=== PATIENT | female | born 1965 | race Caucasian/White ===

== ENCOUNTER 2019-11-27 09:04 | Emergency (ER) | payer OTHER, SELFPAY ==
[2019-11-27 09:09] VITALS: BP 133/82; PULSE 84; RESP 18; TEMP 35.6; O2SAT 96
--- NOTE | 2019-11-27 10:26 | ED.HA ---
HPI - Headache General Chief Complaint: Headache Stated Complaint: sanchez Time Seen by Provider: 11/27/19 10:19 History of Present Illness HPI Narrative: Patient presents with her for migraines since middle of the night. She woke up with it and took 2 10 mg Maxalt. That did not help her at all. She has been throwing up all morning. She is already gotten a liter of fluids Reglan and Benadryl here, and said the nausea is better. The headache pain was 10 out of 10 when she arrived, and is 9 out of 10 now. MD elicited complaint: migraine Pertinent past history: migraines Onset (ago): hour(s) Onset description: on awakening Location: frontal Severity: severe Pain scale (0-10): 9 Exacerbating factors: light Relieving factors: nothing Context: occurred at rest Related Data Allergies Allergy/AdvReac Type Severity Reaction Status Date / Time codeine Allergy Nausea and Verified 11/27/19 09:25 Vomiting morphine Allergy Nausea and Verified 11/27/19 09:25 Vomiting Review of Systems Review of Systems: Narrative: CONSTITUTIONAL: Denies fever, chills, or sweats. EYES: Denies visual changes, redness, or discharge. ENT: Denies rhinorrhea, congestion, sore throat, or otalgia. CARDIOVASCULAR: Denies chest pain, palpitations, or edema. RESPIRATORY: Denies cough or dyspnea. GASTROINTESTINAL: Denies abdominal pain, nausea, vomiting, or diarrhea. GENITOURINARY: Denies dysuria or hematuria. SKIN: Denies rash or itching. MUSCULOSKELETAL: Denies back pain, joint pain, or myalgia. NEUROLOGIC: Denies, numbness, or weakness. PSYCHIATRIC: Denies anxiety or depression. PMFSH Past Medical History Medical History (Updated 11/27/19 @ 10:28 by Nirmala Garibay MD) Migraine Social History Social History Gender identity (if verbalized by the patient): Female Exam Narrative: Exam Narrative: GENERAL: Well-appearing, well-nourished, in moderate distress. Holding her head between her hands, blocking the light from her eyes. HEAD: Normocephalic, atraumatic. EYES: PERRLA and EOMI. ENT: Nares clear, no rhinorrhea or epistaxis. Mucous membranes moist. NECK: Supple. CHEST: Clear to auscultation. No respiratory distress. HEART: Regular rate and rhythm. No murmur heard. Normal peripheral pulses. ABDOMEN: Soft, nontender, nondistended, normal active bowel sounds. EXTREMITIES: Normal range of motion. No edema. SKIN: Warm, dry, no rash. NEURO: No focal deficits. Alert and oriented x3. PSYCH: Flat affect, poor eye contact. Course Reevaluation(s) Reevaluation #1: Went back into see the patient and she is feeling much better. After Reglan Benadryl and IV fluids, then Toradol and Solu-Medrol. Her pain is 3 out of 10. She has not seen a neurologist. I offered to let her follow-up with ours. She agrees. She works from home for [employer], but I advised her to have quiet activity today. Date: 11/27/19 Time: 11:59 Vital Signs Vital signs: Vital Signs Temperature 96.1 F L 11/27/19 09:09 Pulse Rate 84 11/27/19 09:09 Respiratory Rate 18 11/27/19 09:09 Blood Pressure 133/82 11/27/19 09:09 Pulse Oximetry 96 11/27/19 09:09 Temperature 96.1 F L 11/27/19 09:09 Pulse Rate 84 11/27/19 09:09 Respiratory Rate 18 11/27/19 09:09 Blood Pressure 133/82 11/27/19 09:09 Pulse Oximetry 96 11/27/19 09:09 MDM - Headache Differential Diagnosis Differential diagnosis: Likely migraine Medical Records Attestation: I reviewed the patient's medical records. Discharge Plan Discharge Clinical Impression: Migraine Qualifiers: Migraine type: unspecified Status migrainosus presence: without status migrainosus Intractability: not intractable Qualified Code(s): G43.909 - Migraine, unspecified, not intractable, without status migrainosus Patient Disposition: Home, Self-Care Condition: Improved Instructions: Migraine Headache (ED) Additional Instructions: Quiet activity today. Follow-up/Referrals: N
[2019-11-27] MEDS: KETOROLAC 15 MG/ML VIAL (*BKC) IV PUSH (11:14)
[2019-11-27] MEDS: methylPREDNISolone SOD SUCC 125 MG VIAL IV PUSH (11:15)
[2019-11-27] MEDS: SODIUM CHLORIDE 0.9% IV 1,000 ML 999 ML IV CONT (11:15)
[2019-11-27 12:17] VITALS: BP 132/78; PULSE 76; RESP 18; O2SAT 99
== END 2019-11-27 12:27 | disposition home or self-care (01) ==
PROVIDERS: Emergency Provider Emergency Medicine
DX: G43.909 Migraine, unspecified, not intractable, without status migrainosus (principal)
CPT/HCPCS: 96361; 96374; 96375; 99284; J1885; J2930; J7030

== ENCOUNTER 2021-01-29 06:52 | Emergency (ER) | payer OTHER, SELFPAY ==
[2021-01-29 07:19] VITALS: BP 126/76; PULSE 79; RESP 18; TEMP 36.6; O2SAT 99
--- NOTE | 2021-01-29 07:36 | ED.HA ---
HPI - Headache General Chief Complaint: Headache Stated Complaint: migraine Time Seen by Provider: 01/29/21 07:12 History of Present Illness HPI Narrative: Severe headache since early this morning. Associated with nausea, photophobia. typical for her migraines. Used home migraine meds without relief. Related Data Allergies Allergy/AdvReac Type Severity Reaction Status Date / Time aspirin Allergy Hives Verified 01/29/21 07:39 codeine Allergy Nausea and Verified 01/29/21 07:39 Vomiting morphine Allergy Nausea and Verified 01/29/21 07:39 Vomiting Review of Systems Review of Systems: All systems reviewed & are unremarkable except as noted in HPI and below Constitutional: Constitutional: Denies chills, Denies fever(s) and Denies weakness ENT: Denies dizziness and Denies sore throat Cardiovascular: Cardiovascular: Denies chest pain Respiratory: Respiratory: Denies dyspnea Gastrointestinal: Gastrointestinal: Denies abdominal pain and Reports nausea Genitourinary: Genitourinary: Reports no additional female genitourinary complaints Neurologic: Reports system reviewed and no additional complaints, except as documented [facility] Past Medical History Medical History Migraine Social History Social History Gender identity (if verbalized by the patient): Female Exam Const: General: healthy appearing, no acute distress and alert Orientation/consciousness: patient oriented x3 HENMT: Head: normal to inspection Neck: Neck: normal visual inspection Resp: Effort & Inspection: normal respiratory effort Cardio: Jugular venous distension: no JVD Skin: General skin exam: normal color Neuro: General: patient oriented x3, moves all extremities, no focal motor deficits and CN's II-XI intact bilaterally Speech: normal speech Extrem: General: no edema Psych: Appearance: grossly normal and well kempt Mental Status: mental status grossly normal Affect: normal affect Attitude: cooperative Course Vital Signs Vital signs: Vital Signs Temperature 36.6 C 01/29/21 07:19 Pulse Rate 79 01/29/21 07:19 Respiratory Rate 18 01/29/21 07:19 Blood Pressure 126/76 01/29/21 07:19 Pulse Oximetry 99 01/29/21 07:19 Temperature 36.6 C 01/29/21 07:19 Pulse Rate 94 01/29/21 10:32 Respiratory Rate 18 01/29/21 10:32 Blood Pressure 104/63 01/29/21 10:32 Pulse Oximetry 99 01/29/21 10:32 MDM - Headache MDM Narrative Medical decision making narrative: Feeling better after treatment Differential Diagnosis Differential diagnosis: Likely migraine Discharge Plan Discharge Clinical Impression: Migraine Patient Disposition: Home, Self-Care Condition: Stable Instructions: Migraine Headache (ED) Follow-up/Referrals: PHYSICIAN NOT ON STAFF,NONSTAFF [Primary Care Provider] -
[2021-01-29 07:44] VITALS: BP 143/97; PULSE 83; RESP 18; O2SAT 100
[2021-01-29 08:50] VITALS: BP 123/82; PULSE 74; RESP 16; O2SAT 100
[2021-01-29] MEDS: SODIUM CHLORIDE 0.9% IV 1,000 ML 999 ML IV CONT (08:50)
[2021-01-29] MEDS: diphenhydrAMINE HCl INJ 50 MG/ML VIAL 25 MG IV PUSH (08:52)
[2021-01-29] MEDS: KETOROLAC 30 MG/ML VIAL (*BKC) IV PUSH (08:52)
[2021-01-29] MEDS: METOCLOPRAMIDE HCL INJ 10 MG/2 ML VIAL IV PUSH (08:52)
[2021-01-29] MEDS: DEXAMETHASONE SOD PHOS INJ 4 MG/ML VIAL 10 MG IV PUSH (09:18)
[2021-01-29 09:19] VITALS: BP 101/59; PULSE 106; RESP 18; O2SAT 100
[2021-01-29 10:32] VITALS: BP 104/63; PULSE 94; RESP 18; O2SAT 99
== END 2021-01-29 10:36 | disposition home or self-care (01) ==
PROVIDERS: Emergency Provider Emergency Medicine
DX: G43.909 Migraine, unspecified, not intractable, without status migrainosus (principal)
CPT/HCPCS: 96361; 96365; 96375; 99284; J0131; J1100; J1200; J1885; J2765; J7030

== ENCOUNTER 2021-07-01 15:20 | Emergency (ER) | payer OTHER, SELFPAY ==
[2021-07-01 15:30] VITALS: PULSE 119; RESP 17; TEMP 36.3; O2SAT 95
--- NOTE | 2021-07-01 16:15 | PC.NURSE ---
Pt to intake Pt desk reporting she is going to have her come pick her up. Pt states she understands that her current symptoms are to be expected with her diagnosis of covid-19 and she would like to go home and get some rest and follow up with her PCP. Pt left without being seen by provider from triage.
== END 2021-07-02 03:00 | disposition left against medical advice (07) ==
LOC: ANHED 16:52
DX: U07.1 COVID-19 (principal); R05.9 Cough, unspecified; R51.9 Headache, unspecified
CPT/HCPCS: 99199

== ENCOUNTER 2021-07-09 16:00 | Emergency (ER) | payer BC, OTHER, SELFPAY ==
[2021-07-09 16:02] VITALS: BP 141/74; PULSE 115; RESP 18; TEMP 36.7; O2SAT 99
--- NOTE | 2021-07-09 18:21 | ED.HA ---
HPI - Headache General Chief Complaint: Headache Stated Complaint: migraine Time Seen by Provider: 07/09/21 18:04 Source: patient Mode of arrival: ambulatory Limitations: no limitations History of Present Illness HPI Narrative: 56-year-old female with a history of rheumatoid arthritis and migraines presents to the ED secondary to headache. The patient states she was diagnosed with COVID-19 approximately 2 weeks ago. She has been experiencing intermittent sore throat, cough, fatigue, and headache since that time. She has been experiencing what she describes as migraines intermittently over the past 5 days. Current headache is located to the bilateral frontal region of the head and began last evening. Headache is associated with nausea, vomiting, photophobia, and phonophobia. She states current headache feels similar to previous migraines. She has been using [id number] analgesics with minimal relief. No recent history of posterior neck stiffness, visual changes, hematemesis, or abdominal pain. Related Data Home Medications Medication Instructions Recorded Confirmed Ubrelvy 07/09/21 propranolol 07/09/21 Allergies Allergy/AdvReac Type Severity Reaction Status Date / Time aspirin Allergy Hives Verified 07/01/21 15:28 codeine AdvReac Nausea and Verified 07/09/21 16:06 Vomiting morphine AdvReac Nausea and Verified 07/09/21 16:06 Vomiting Review of Systems Review of Systems: CONSTITUTIONAL: Denies fever, chills, or sweats. EYES: Photophobia ENT: Denies sore throat CARDIOVASCULAR: Denies chest pain, palpitations, or edema. RESPIRATORY: Cough GASTROINTESTINAL: Denies abdominal pain, nausea, vomiting, or diarrhea. GENITOURINARY: Denies dysuria or hematuria. SKIN: Denies rash or itching. MUSCULOSKELETAL: Denies back pain, joint pain, or myalgia. NEUROLOGIC: Headache; photophobia. PSYCHIATRIC: Denies anxiety or depression. All systems reviewed & are unremarkable except as noted in HPI and below PMFSH Past Medical History Medical History Migraine Social History Social History Gender identity (if verbalized by the patient): Female Exam Narrative: GENERAL: Uncomfortable appearing; lights turned off in room; eyes covered with stocking HEAD: Normocephalic, atraumatic. EYES: PERRLA and EOMI. + photophobia ENT: Nares clear, no rhinorrhea or epistaxis. Mucous membranes moist. Oropharynx without tonsillar hypertrophy exudate or other lesions. Bilateral TMs pearly weldon nonbulging NECK: Supple. No adenopathy or masses. No carotid bruits or JVD CHEST: Clear to auscultation. No respiratory distress. No wheezes rales or rhonchi HEART: Regular rate and rhythm. No murmur heard. Normal peripheral pulses. ABDOMEN: Soft, nontender, nondistended, normal active bowel sounds. EXTREMITIES: Normal range of motion. No edema. SKIN: Warm, dry, no rash. NEURO: No nuchal rigidity; cranial nerves II - XII grossly intact; alert and oriented x4; moves all extremities well. PSYCH: Normal mood and affect. Course Vital Signs Vital signs: Vital Signs Temperature 98.1 F 07/09/21 16:02 Pulse Rate 115 H 07/09/21 16:02 Respiratory Rate 18 07/09/21 16:02 Blood Pressure 141/74 H 07/09/21 16:02 Pulse Oximetry 99 07/09/21 16:02 Temperature 98.1 F 07/09/21 16:02 Pulse Rate 118 H 07/09/21 18:33 Respiratory Rate 18 07/09/21 16:02 Blood Pressure 141/74 H 07/09/21 18:33 Pulse Oximetry 99 07/09/21 18:33 MDM - Headache MDM Narrative Medical decision making narrative: Patient arrives to the ED with a headache which she states feels like typical migraine. Migraine cocktail given. Headache much improved. She is comfortable with discharge at this time. Patient to follow-up with PCP for further evaluation and is to return to the ED if symptoms worsen or Critical Care Time Critical Ca
[2021-07-09 18:33] VITALS: BP 141/74; PULSE 118; O2SAT 99
[2021-07-09] MEDS: PROCHLORPERAZINE EDISYLATE 10 MG/2 ML VIAL IV PUSH (18:44)
[2021-07-09] MEDS: KETOROLAC 15 MG/ML VIAL (*BKC) IV PUSH (18:45)
[2021-07-09] MEDS: diphenhydrAMINE HCl INJ 50 MG/ML VIAL 25 MG IV PUSH (18:45)
[2021-07-09] MEDS: SODIUM CHLORIDE 0.9% IV 1,000 ML 999 ML IV CONT (18:46)
[2021-07-09 20:15] VITALS: PULSE 64; RESP 14; O2SAT 100
== END 2021-07-09 20:15 | disposition home or self-care (01) ==
PROVIDERS: Emergency Provider Emergency Medicine
DX: R51.9 Headache, unspecified (principal); M06.9 Rheumatoid arthritis, unspecified; Z86.16 Personal history of COVID-19
CPT/HCPCS: 96361; 96374; 96375; 99284; J0780; J1100; J1200; J1885; J7030

== ENCOUNTER 2024-07-27 08:24 | Outpatient (CLI) | payer BC, SELFPAY ==
--- NOTE | ~2024-07-27 | MR_ITS ---
MRI of the right ankle Clinical history: Achilles tendinitis Technique: Coronal proton-density and proton-density fat-sat images, axial proton-density and proton- density fat-sat images, and sagittal proton-density and proton-density fat-sat images were acquired. Findings: Syndesmotic ligaments are intact. Anterior and posterior talofibular ligaments, and calcane ofibular ligament are intact. Deltoid ligament intact. Medial flexor tendons, peroneus longus tendon, and anterior extensor tendons are intact. Achilles ten don is intact, without tendinosis. There is longitudinal split tear of the peroneus Tendon at the level of the tip of the lateral malleolus. There is no osteochondral lesion of the talar dome. Joint spaces and bone marrow signals are unremark able. Plantar fascia intact. No soft tissue mass or fluid collection evident. Impression: Longitudinal split tear of the peroneus brevis tendon, as detailed above. Achilles tendon is intact, unremarkable. Reviewed, dictated and finalized at location . LANCE DATA ENTRY Impression: Longitudinal split tear of the peroneus brevis tendon, as detailed above. Achilles tendon is intact, unremarkable.
== END 2024-07-27 08:25 | disposition home or self-care (01) ==
LOC: MICIMG 08:25
PROVIDERS: Visit Provider Podiatrist Foot & Ankle Surgery
DX: M76.61 Achilles tendinitis, right leg (principal); S96.811A Strain of other specified muscles and tendons at ankle and foot level, right foot, initial encounter; X58.XXXA Exposure to other specified factors, initial encounter
CPT/HCPCS: 73721

== ENCOUNTER 2025-02-18 12:12 | Emergency (ER) | payer BC, SELFPAY ==
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
--- OUTSIDE RECORDS SUMMARY | 2025-02-18 12:14 | XMS_ITS | Clinical Summary ---
Author Organization [facility] [employer] Address [address] [place] [address] Care Team Providers Care Salesperson Furs Name Role Phone Carri De La O MD Unavailable Unavailable Shane Crespo MD Primary Care Provider [phone] Source Comments [facility],non-owned Affiliates and Associated Physician Practices is amultiple site organization consisting of ambulatory clinics and hospital sitesin [place], [place], [place] and [place]. This disclosure is being madepursuant to the Care Everywhere program and may not contain all information available regarding this patient. Last updated 18.[facility] [employer] Allergies Active Allergy Reactions Criticality Noted Date Comments Aspirin 09/08/2012 Azathioprine Urticaria 01/19/2016 Bee Venom Swelling Medium 11/25/2019 Heart swelled Heart swelled Heart swelled Twcnddgwkk-Vxxqsof-Lvhbocv e Urticaria High 11/25/2019 Codeine 09/08/2012 Contrast-Iodinated Agents For Ct/Other Other 10/15/2015 Pain in arm Iodine Urticaria,Shortness of Breath High 11/25/2019 Latex Itching,Swelling 02/09/2023 Leflunomide Fever,Headache,Hepa tic Injury,Other High 04/09/2018 Morphine Itching 09/08/2012 Prochlorperazine Other 05/23/2017 Shellfish Urticaria High 11/25/2019 [place] Urticaria High 11/25/2019 Medications * Be aware that medications may not be up to date on this document. Alwaysverify current medications with the patient. busPIRone (BUSPAR) 15 MG tablet Take 1 (one) tablet by mouth 3 times daily Active cycloSPORINE (RESTASIS) 0.05 % ophthalmic suspension Instill 1 (one) drop into both eyes 2 times daily Active cetirizine (ZYRTEC) 10 MG tablet Take 1 (one) tablet by mouth 2 times daily 6 Active predniSONE (DELTASONE) 10 MG tablet Take 1 Tab by mouth once daily Take 3 tabs daily for 1 week, then 2 tabs daily for 1 week, then continue taking one tablet daily 50 Tab 2 6 Active Additional Information Patient taking differently: 20 mgOral DAILY, Take 3 tabs daily for 1 week, then 2 tabs daily for 1 week, then continue taking one tablet daily, Reported on 02/07/2023 sulfaSALAzine EC (Azulfidine Entab) 500 MG tablet Take 2 (two) tablets by mouth 2 times daily 2 Active celecoxib (CeleBREX) 200 MG capsule Take 1 (one) capsule by mouth 2 times daily Active Atogepant (Qulipta) 60 MG TABS Take 1 (one) tablet by mouth once daily Active Methotrexate, Anti-Rheumatic , (METHOTREXATE, PF, SC) Inject 1 mg subcutaneously every 7 days Active Zavegepant HCl (ZAVZPRET NA) [place] 10 mg into the nose as needed Active magnesium 500 MG tablet Take 1 (one) tablet by mouth once daily Active Cholecalcifero l (D3 2000 PO) Take 1 tablet by mouth once daily Active Multiple Vitamin (MULTIVITAMIN ADULT PO) Take 1 mg by mouth once daily Active DULoxetine (Cymbalta) 30 MG capsule Take 3 (three) capsules by mouth once daily Active brimonidine-ti molol (Combigan) 0.2-0.5 % ophthalmic solution Instill 1 drop into both eyes 2 times daily Active traMADol (Ultram) 50 MG tablet Take 1 (one) tablet by mouth every 6 hours as needed for Pain Active acetaminophen (Tylenol) 325 MG tablet Take 2 (two) tablets by mouth every 6 hours as needed for Fever or Pain Maximum allowable Acetaminophen amount = 4 Grams (4000 mg) / 24 hours. 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 Monthly or less 03/07/2023 Average Number of Drinks Not on file 023 Frequency of Binge Drinking Not on file 02/17 Comments No Sex and Gender Information Value Date Recorded Sex Assigned at Not on file Legal Sex Female 5:07 AM [employer] Gender Identity Not on file Sexual Orientation Not on file Last Filed Vital Signs Vital Sign Reading Time Taken Comments Blood Pressure 124/71 03/07/2023 11:57 AM CDT Pulse 86 03/07/2023 11:57 AM CDT Temperature 36.2 C (97.2 F) 03/07/2023 9:50 AM CDT Respiratory Rate 16 03/07/2023 11:57 AM CDT Oxygen Saturation 99% 03/07/2023 11:57 AM CDT Inhaled Oxygen Concentration - - Weight 65.8 kg (145 lb) 03/07/2023 9:50 AM CDT Height 160 cm (5' 3) 03/07/2023 9:50 AM CDT Body Mass Index 25.69 03/07/2023 9:50 AM CDT Plan of Treatment Health Maintenance Due Date Last Done Comments COLOGUARD (AGES 45-75) - COLON CA SCREENING 1965 COLON MONITORING 1965 COLONOSCOPY - COLON CA SCREENING 1965 CT COLONOGRAPHY - COLON CA SCREENING 1965 FLEX SIG - COLON CA SCREENING 1965 LIPID TESTING 1965 MAMMOGRAM 1965 HIV SCREENING 1980 DTAP/TDAP/TD VACCINES (1 - Tdap) 1984 HEPATITIS B VACCINE (1 of 3 - 19+ 3-dose series) 1984 PNEUMOCOCCAL VACCINE 50+ (1 of 1 - PCV) 2015 ZOSTER VACCINE (1 of 2) 2015 Colorectal Cancer Screening 11/24/2020 FIT - COLON CA SCREENING 11/24/2020 11/25/2019 PAP SMEAR 11/24/2022 11/25/2019 DEPRESSION SCREENING 06/19/2024 COVID-19 VACCINE ( season) 2025 04/19/2022, 05/03/2021, 09/08/2020, Additional history exists INFLUENZA VACCINE (#1) 2025 2, 04/19/2022, 05/03/2021, Additional history exists SCREENING FOR DIABETES 03/07/2026 3, 12/16/2015, 07/08/2015 HEPATITIS C SCREENING Completed 04/11/2018 HIB VACCINE Aged Out No longer eligi ble based on patient's age to complete this topic HPV VACCINE Aged Out No longer eligi ble based on patient's age to complete this topic MENINGOCOCCAL (Group B) VACCINE SHARED DECISION-MAKING Aged Out No longer eligible based on patient's age to complete this topic MENINGOCOCCAL GROUPS A/C/Y/W VACCINE Aged Out No longer eligible based on patient's age to complete this topic Procedures Procedure Name Priority Date/Time Associated Diagnosis Comments COMPREHENSIVE METABOLIC PANEL STAT 03/07/2023 11:45 AM CDT from Last 3 Months or Most Recently Relevant to Health Maintenance Results * (ABNORMAL) COMPREHENSIVE METABOLIC PANEL (03/07/2023 11:45 AM CDT) [facility] Glucose 87 70 - 105 mg/dL 03/07/2023 12:03 PM CDT [facility] Sodium 141 136 - 145 mmol/L 03/07/2023 12:03 PM CDT [facility] Potassium 3.9 3.5 - 5.1 mmol/L 03/07/2023 12:03 PM CDT [facility] Chloride 107 98 - 107 mmol/L 03/07/2023 12:03 PM CDT [facility] CO2 24 22 - 29 mmol/L 03/07/2023 12:03 PM CDT [facility] Calcium 9.8 8.4 - 10.4 mg/dL 03/07/2023 12:03 PM CDT [facility] Anion Gap 10 6 - 16 mmol/L 03/07/2023 12:03 PM CDT [facility] BUN 13 7 - 26 mg/dL 03/07/2023 12:03 PM CDT [facility] Creatinine 0.95 0.57 - 1.11 mg/dL 03/07/2023 12:03 PM CDT [facility] Alkaline Phosphatase 47 40 - 150 U/L 03/07/2023 12:03 PM CDT [facility] ALT 29 0 - 55 U/L 03/07/2023 12:03 PM CDT [facility] AST 30 5 - 34 U/L 03/07/2023 12:03 PM CDT [facility] Protein Total 7.5 6.4 - 8.3 gm/dL 03/07/2023 12:03 PM CDT [facility] Albumin 4.1 3.4 - 5.0 gm/dL 03/07/2023 12:03 PM CDT [facility] Bilirubin Total 0.6 0.2 - 1.2 mg/dL 03/07/2023 12:03 PM CDT [facility] eGFR by CKD-EPI 70(L) >=90 mL/min/1.7 3 m2 03/07/2023 12:03 PM CDT [facility] Blood BLOOD SPECIMEN / Unknown Venipuncture / Unknown 03/07/2023 11:45 AM CDT 03/07/2023 11:47 AM CDT Velma Mccray PA-C LAB - CHEMISTRY ORDERABL ES Final Result [facility] [id number] [place] [address] from Last 3 Months or Most Recently Relevant to Health Maintenance Insurance [employer] Care Teams Salesperson Furs Relationship Specialty [place] [id number] [facility] [address] [place] [id number] PCP - General Internal Medicine 02/09/23 Carri De La O MD Internal Medicine 02/10/20
--- OUTSIDE RECORDS SUMMARY | 2025-02-18 12:14 | XMS_ITS | Clinical Summary ---
Author Organization [facility] Address [address] [place] [address] Phone Care Team Providers Care Locomotive Repairer Diesel Name Role Phone Shane Crespo MD Primary Care Provider [phone] Allergies Active Allergy Reactions Criticality Noted Date Comments Aspirin Hives High 09/23/2013 Azathioprine Hives High 01/18/2016 Egxxkntmxt-Jgbyooh-Yirxtd ne Hives High 11/25/2019 Codeine Hives High 09/23/2013 Epinephrine Other (See Comments) 11/10/2011 Other reaction(s): sensitivity to this drug Iodinated Contrast Media Other (See Comments) 12/10/2013 Pain in arm Iodine Hives,Shortness of Breath/Wheezing High 11/25/2019 Latex Itching,Rash,Swell ing Low 02/09/2023 Leflunomide Fever,Headache,Hep atic Dysfunction,Muscle Pain Medium 04/09/2018 Meperidine Unknown 11/25/2019 Metrizamide Other (See Comments) 10/15/2015 Pain in arm Morphine Hives High 09/23/2013 Prochlorperazine Edisylate Other (See Comments) 05/23/2017 Pseudoephedrine Hcl Other (See Comments) 08/04/2015 Had epinephrine for asthma attack. Triggered pain in arm, rapid HR and pt passed out. Pt does tolerated albuterol inhaler. Shellfish Containing Products Hives High 11/25/2019 Venom-Honey Bee Swelling Medium 11/25/2019 Heart swelled Medications cetirizine (ZyrTEC) 10 mg tablet Take 1 Tablet (10 mg) by mouth see administration instructions Take q am for hives. May repeat in 12 hours if persistent hives.. 0 016 Active cycloSPORINE (Restasis) 0.05 % emulsion 1 Drop by Ophthalmic route. Active predniSONE (DELTASONE) 2.5 mg tablet TAKE 3 TABLETS BY MOUTH EVERY DAY Active sulfaSALAzine (AZULFIDINE EN-TAB) 500 mg Tablet, Delayed Release (E.C.) Active omeprazole (PriLOSEC) 40 mg Capsule, Delayed Release(E.C.) Take 1 Capsule (40 mg) by mouth daily in the morning. 90 Capsule 1 023 Active traMADoL (ULTRAM) 50 mg tablet TAKE 1-2 TABLET WITH TYLENOL ES DURING DAY AND TYLENOL PM AT BEDTIME BY ORAL ROUTE THREE TIMES DAILY Active metoclopramide HCl (REGLAN) 10 mg tablet Take 5 mg by mouth. 023 Active methotrexate PF 25 mg/mL Solution Inject 1 mL by subcutaneous injection every 7 days. 023 Active folic acid (FOLVITE) 1 mg tablet Take 1 mg by mouth daily. Active brimonidine-ti moloL (COMBIGAN) 0.2-0.5 % solution 1 Drop by Ophthalmic route 2 times daily. Active busPIRone (BUSPAR) 15 mg Tablet Take 15 mg by mouth. Active DULoxetine (CYMBALTA) 30 mg Capsule, Delayed Release(E.C.) Take 90 mg by mouth daily. Active metroNIDAZOLE (METROCREAM) 0.75 % Cream Apply to affected area 2 times daily. Active cyclobenzaprin e (FLEXERIL) 5 mg Tablet Take 5 mg by mouth 3 times daily as needed for Spasm. Active valACYclovir (Valtrex) 1 gram tabletIndicati ons:Herpes simplex type 1 infection Take 2 Tablets by mouth see administration instructions. For treatment of cold sores/fever blister: At first sign of outbreak take 2 grams every 12 hours for 1 day . 24 Tablet 1 024 Active rimegepant (Nurtec ODT) 75 mg Tablet, Rapid Dissolve Take by mouth. Active fluticasone propionate (FLONASE) 50 mcg/spray [place], Suspension nasal inhalerIndicat ions:Pain in ear, bilateral SPRAY 2 SPRAYS INTO EACH NOSTRIL EVERY DAY 48 mL 1 Active modafiniL (PROVIGIL) 200 mg Tablet Take 200 mg by mouth daily in the morning. 024 Active fluorometholon e (FML) 0.1 % suspension 1 drop into affected eye Ophthalmic as directed Active SUMAtriptan (IMITREX) 100 mg tabletIndicati ons:Chronic migraine without aura without status migrainosus, not intractable Take 1 Tablet (100 mg) by mouth 1 time daily as needed for Migraine. may repeat in 2 hours; max dose 200mg in 24 hours 8 Tablet 025 Active topiramate (Topamax) 100 mg tabletIndicati ons:Chronic migraine without aura without status migrainosus, not intractable Take 1 Tablet (100 mg) by mouth daily. 30 Tablet 025 Active pantoprazole (PROTONIX) 40 mg Tablet, Delayed Release (E.C.) TAKE 1 TABLET BY MOUTH EVERY DAY 30 Tablet Active estradioL (ESTRACE) 0.01% (0.1 mg/g) vaginal cream Insert 1 Gram vaginally daily. 42.5 Gram 3 025 Active estradioL (Imvexxy Maintenance Pack) 4 mcg Insert Insert 1 Insert vaginally daily. 30 Each 3 025 2024 Discontinued Active Problems Patient Care Coordination No te Formatting of this note migh t be different from the original. Primary Care: Carri De La O [place]: [place] [id number] [address] Other: Dr. Nimco Berry MD Problem Noted Date Diagnosed Date Meibomian gland dysfunction (MGD) of both eyes 0 07/31/2024 Dry eye syndrome of both eyes 07/29/2024 Overview (01/16/2025): -(+)RA, fibromyalgia, ankylosing spondylitis; all poorly controlled per pt Anterior scleritis of both eyes 07/25/2024 Laryngopharyngeal reflux 04/25/2024 Hyperlipidemia, mild 06/18/2023 TONIA (obstructive sleep apnea) 02/27/2023 Ankylosing spondylitis 06/21/2022 Increased risk of breast cancer 04/14/2022 Celiac disease 02/04/2022 Dense breast tissue on mammogram 02/16/2020 Fibrocystic breast changes of both breasts 02/06 Family history of malignant neoplasm of breast in relative diagnosed when younger than 45 years of age 0802/07/2020 Tubular adenoma of colon 08/28/2018 RA (rheumatoid arthritis) 04/10/2018 Current chronic use of systemic steroids 017 Overview (10/24/2016): For autoimmune disorder Chronic idiopathic urticaria 03/09/2016 BMI 25.0-25.9,adult 08/04/2015 Carpal tunnel syndrome 07/08/2015 Incidental lung nodule 2015 Overview (2015): Repeat CT scan 1 year Chronic migraine without aur a without status migrainosus, not intractable 11/27/2013 VANI (generalized anxiety disorder) 09/23/2013 Overview (09/23/2013): keegan oglesby Drug reaction Resolved Problems Problem Noted Date Diagnosed Date Resolved Date Acute anterior uveitis of right eye 01/02/2023 03/14/2023 Fever of unknown origin (FUO) 04/10/2018 01/18/2019 Elevated LFTs 04/10/2018 03/14/2023 Thrombocytosis 12/10/2013 03/14/2023 Overview (12/10/2013): 11/25/13: CBC - normal except for platelet count of 374. 11/27/13: platelet count 398. Assessment & Plan (12/10/2013 2:27 PM CDT): I had a long discussion with her about the possible causes of thrombocytosis including primary versus reactive. Reactive causes include infection, inflammation, acute bleeding, recent surgery, iron deficiency. Primary causes would include essential thrombocytosis, chronic myeloproliferative process. Her WBC count and RBC count are within normal limits suggesting that is not liekely a myeloproliferative process. I believe it is most likely reactive due to undetected inflammation. I feel that her arthralgias may have been caused by a systemic inflammatory process and that may be causing mild thrombocytosis. Based on her CBC, she does not have microcytosis or anemia to suggest ongoing iron deficiency. Regardless of the cause, with such mild increase in platelet count, she will be asymptomatic and there is no need for intervention. Should the platelets increase significantly and approach 1 million, would consider starting her on enteric-coated aspirin 81 mg. Should the platelet count increase, will also proceed with workup and obtain ARGELIA 2 mutation and bone marrow biopsy. I suggested that she discuss with her PCP regarding referral to rheumatology for further evaluation of arthralgias. She felt reassured at the end of today's discussion, was satisfied with office visit and had no further questions. Encounters Date Type Department Care Team Description 02/12/2025 External Device Data STL ABSTRACTION Provider, Abstract 02/11/[address] [facility] [address] [place] [address] Ruy Cox MD MAMMO 3D AUTOMATED BREAST US BILAT 02/10/2025 8:30 AM CDT - 02/10/2025 11:59 PM CDT Hospital Encounter [facility] Medical [facility] A [address] [place] [address] Ruy Cox MD Discharge Disposition: Home or Self Care 02/04/2025 External Device Data STL ABSTRACTION Provider, Abstract 01/22/2025 Orders Only [facility] OFFICE ADMINISTRATION - Medical [address] [facility] [address] [place] [address] Austin Saeed MD 01/21/2025 Telephone [facility] Women's Health Clinical Support [address] [address] Sylvester Aiken, induction machine setter Assistance 01/16/2025 1:15 PM CDT Office Visit [facility] OFFICE ADMINISTRATION - [facility] [address] [facility] [address] [place] [address] Austin Saeed MD Dyspareunia in female (Primary Dx) 01/16/2025 Abstract [facility] Neurology [facility] [address] [place] [address] Shruthi Haney CMA 01/14/2025 Telephone [facility] Women's Health Clinical Support [address] [facility] [address] [place] [address] Franchesca Nascimento RN Needs Appointment 12/24/2024 External Device Data STL ABSTRACTION Provider, Abstract 12/24/2024 External Device Data STL ABSTRACTION Provider, Abstract 11/25/2024 Abstract [facility] Internal Medicine [address]y L[address]pez [address] [place] [phone] Shane Crespo MD from Last 3 Months Immunizations Immunization Administration Dates Next Due (ADACEL/BOOSTRIX)(10 YR UP) TDAP VACCINE, 0.5ML, IM 07/02/2012,06/19/2004 (TDVAX)(7 YRS UP) TETANUS AN D DIPHTHERIA TOXOIDS, ADSORBED (2 LF OF TETANUS TOXOID AND 2 LF OF DIPHTHERIA TOXOID), 0.5ML (PF), IM 03/04/2012 INFLUENZA VACCINE QUADRIVALE NT 3 YR UP PF IM 02/18/2020 INFLUENZA VACCINE TRIVALENT SPLIT VIRUS, (6 MOS UP), 0.5ML (PF), IM 03/20/2024 Influenza Seasonal Unspecifi ed Formulation IM 05/03/2022,05/03/2021,04/05/2018,2017,04/04/2017,04/02/2014,04/03/2013,1 Influenza Vaccine Split 3+ Yrs PF IM 2015 Family History Medical History Relation Name Comments Diabetes Father Doc Hypertension Father Doc Breast Cancer Maternal Grandmother Tory Gutierrez Cancer Maternal Grandmother Tory Gutierrez Diabetes Mother L[place]ou Heart Disease Mother [place] Heart Failure Mother [place] Colon Cancer Neg Hx Ovarian Cancer Neg Hx Relation Name Status Comments Father Doc Maternal Grandmother Tory Gutierrez Mother Loulou Social History Tobacco Use Types Packs/Day Years Used Date Smoking Tobacco: Never Passive Smoke Exposure: Never Smokeless Tobacco: Never Tobacco Cessation:Counseling Given: Not Answered Alcohol Use Standard Drinks/Week Comments Not Currently 2 (1 standard drink = 0.6 oz pur e alcohol) 2 glasses of wine per week Feeling Safe Answer Date Recorded Are you in a relationship wi th someone who hurts you emotionally and/or physically? No 05/26/2024 Comments No Sex and Gender Information Value Date Recorded Sex Assigned at Not on file Legal Sex Female 11:08 AM FLIGHT ENGINEER Gender Identity Not on file Sexual Orientation Not on file Occupation Industry Job Start Date Job End Date Not on file Not on file Not on file Not on file Last Filed Vital Signs Vital Sign Reading Time Taken Comments Blood Pressure 120/74 01/16/2025 1:07 PM CDT Pulse 91 10/01/2024 11:38 AM CDT Temperature 36.1 C (97 F) 05/27/2024 11:30 AM FLIGHT ENGINEER Respiratory Rate 20 05/26/2024 1:08 PM FLIGHT ENGINEER Oxygen Saturation 94% 10/01/2024 11:38 AM CDT Inhaled Oxygen Concentration - - Weight 68 kg (150 lb) 01/16/2025 1:07 PM CDT Height 154.9 cm (5' 1) 01/16/2025 1:07 PM CDT Body Mass Index 28.34 01/16/2025 1:07 PM CDT Plan of Treatment Upcoming Encounters Date Type Department Care Team (Late st Contact Info) Description 03/20/2025 11:00 AM CDT Office Visit [facility] Internal Medicine [address]y Rene [address] [place] [phone] [place] [address] [address] [facility] [address] [place] [address] 04/02/2025 11:30 AM CDT Office Visit [facility] Neurology [facility] [address] [facility] [address] [place] [address] [place] [address] [facility] [address] [place] [address] Health Maintenance Due Date Last Done Comments Pre-Diabetes and Diabetes Screening 1965 HEPATITIS B VACCINES (1 of 3 - 19+ 3-dose series) 1984 ZOSTER VACCINE (1 of 2) 1984 FIT-DNA Q 3 years 2010 Flex Sig/CT Colonography Q 5 years 2010 FIT/FOBT Q 1 year 11/24/2020 11/25/2019 DTAP/TDAP/TD VACCINES (4 - T d or Tdap) 07/02/2022 07/02/2012, 03/04/2012, 06/19/2004 INFLUENZA VACCINE (#1) 2025 , 05/03/2022, 05/03/2021, Additional history exists BREAST CANCER SCREENING 04/08/2025 04/08/20 24, 04/04/2023, 03/15/2022, Additional history exists COLORECTAL SCREENING 03/11/2027 03/11/2022, 03/11/2022, 08/24/2018, Additional history exists Colorectal Cancer Screening 03/11/2027 PAP SMEAR 05/21/2027 05/21/2024, 03/21, 04/14/2022, Additional history exists CERVICAL CANCER SCREENING 05/21/2029 HPV/Cotest (21-29) 05/21/2029 05/21/2024, 1 , 04/14/2022, Additional history exists HPV/Cotest (30-65) 05/21/2029 05/21/2024, 1 , 04/14/2022, Additional history exists Procedures Procedure Name Priority Date/Time Associated Diagnosis Comments MAMMO 3D AUTOMATED BREAST US BILAT Routine 02/10/2025 9:05 AM CDT Increased risk of breast cancer CERV/VAG CYTO SCREEN PAP RLFX HPV Routine 05/21/2024 1:22 PM FLIGHT ENGINEER Encounter for gynecological examination with abnormal finding MAMMO 3D YUMI DIAGNOSTIC BILAT W OR WO CAD Routine 04/08/2024 10:21 AM CDT Increased risk of breast cancer COLONOSCOPY REPORT 03/11/2022 10 :53 AM CDT POC OCCULT BLOOD, IMMUNO, QUAL, STOOL Routine 11/25/2019 11:20 AM CDT Screening for malignant neoplasm of the rectum from Last 3 Months or Most Recently Relevant to Health Maintenance Results * MAMMO 3D AUTOMATED BREAST US BILAT (02/10/2025 9:05 AM CDT) Anatomical Region Laterality Modality Breast Bilateral Ultrasound 02/10/2025 9:05 AM CDT Impressions 02/10/2025 10:23 AM CDT IMPRESSION: No suspicious abnormality is identified within either breast. RECOMMENDATION: Continued annual screening. OVERALL FINAL ASSESSMENT: BI-RADS CATEGORY 1: Negative. DICTATION LOCATION: [facility] Narrative 02/10/2025 10:23 AM CDT AUTOMATED WHOLE BREAST BILATERAL ULTRASOUND DATE: 02/10/2025 9:05 AM HISTORY: Dense breast tissue. Family history of malignancy. COMPARISON: Mammography 04/08/2024 and older. TECHNIQUE: Automated whole breast ultrasound volumes were obtained of both breasts in the AP, lateral and medial projections. The images were interpreted on the dedicated ABUS (3D automated breast ultrasound) review station in the coronal and transverse planes. All four quadrants and retroareolar regions were imaged bilaterally. FINDINGS: No discrete solid mass or complex cystic lesion is present within either breast. No architectural distortion or suspicious acoustic shadowing is present within either breast. us Ruy Cox MD MAMMO ORDERABLES Final Resul t * CERV/VAG CYTO SCREEN PAP RLFX HPV (05/21/2024 1:22 PM FLIGHT ENGINEER) CLINICAL INFORMATION Julisa Phelps Comment:RTN LAST MENSTRUAL PERIOD Julisa Phelps Comment:NONE GIVEN PREV PAP: Julisa Phelps Comment:NONE GIVEN PREV BX: Julisa Phelps Comment:NONE GIVEN SOURCE Julisa Phelps Comment:Endocervix ADEQUACY: Julisa Phelps Comment: Satisfactory for evaluation. Endocervical/transformation zone component absent. Age and/or menstrual status not provided PAP INTERP Julisa Phelps Comment: Cytology Results: Negative for intraepithelial lesion or malignancy. COMMENT (PAP TEST) Q uest Connie Phelps Comment: This Pap test has been evaluated with computer assisted technology. LABEL PASTER: Paresh Phelps Comment: YQ, CT(ASCP) CT screening location: [place] [address] [place] [address] EXPLANATORY NOTE Que [facility] janet Lenin Comment: EXPLANATORY NOTE: The Pap is a screening test for cervical cancer. It is not a diagnostic test and is subject to false negative and false positive results. It is most reliable when a satisfactory sample, regularly obtained, is submitted with relevant clinical findings and history, and when the Pap result is evaluated along with historic and current clinical information. Test Performed at: [place] [address] [address] [place] [address] [facility] Vo Genital SWAB OF ENDOCERVIX / Unknown 05/21/2024 1:22 PM FLIGHT ENGINEER 05/22/2024 6:09 AM FLIGHT ENGINEER us Ruy Cox MD PATHOLOGY/CYTOLOGY ORDERABLE S Final Result [facility] [phone] [place] [address] [address] [place] [address] * MAMMO DIAG BILAT 3D YUMI W OR WO CAD (04/08/2024 10:21 AM CDT) Anatomical Region Laterality Modality Breast Bilateral Mammography 04/08/2024 10:2 1 AM CDT Impressions 04/08/2024 10:42 AM CDT IMPRESSION: No mammographic evidence of malignancy. RECOMMENDATIONS: Routine mammogram in one year. DICTATION LOCATION: [facility] Narrative 04/08/2024 10:42 AM CDT EXAM: BILATERAL DIAGNOSTIC FULL-FIELD DIGITAL MAMMOGRAPHY WITH CAD WITH 3D TOMOSYNTHESIS DATE: 04/08/2024 10:21 AM HISTORY: Previous benign core biopsy of the right breast in 2021 and family history breast cancer in the patient's maternal grandmother at the age of 45. TECHNIQUE: Mediolateral oblique and craniocaudal views of both breasts were performed using full field digital mammography. Low-dose full-field digital breast tomosynthesis examination was performed with 2D and 3D acquisitions. Examination is read in conjunction with computer aided detection. COMPARISON: November 2019 through March 2023. BREAST COMPOSITION: The breasts are heterogeneously dense, which may obscure small masses. FINDINGS: No suspicious findings are seen on the current mammogram. Since the prior study, there has been no significant change. CAD detected no significant abnormality. OVERALL FINAL ASSESSMENT: BI-RADS CATEGORY 1 - Negative Procedure Note Pedro Ramirez MD - 04/08/2024 EXAM: BILATERAL DIAGNOSTIC FULL-FIELD DIGITAL MAMMOGRAPHY WITH CAD WITH 3D TOMOSYNTHESIS DATE: 04/08/2024 10:21 AM HISTORY: Previous benign core biopsy of the right breast in 2021 and family history breast cancer in the patient's maternal grandmother at the age of 45. TECHNIQUE: Mediolateral oblique and craniocaudal views of both breasts were performed using full field digital mammography. Low-dose full-field digital breast tomosynthesis examination was performed with 2D and 3D acquisitions. Examination is read in conjunction with computer aided detection. COMPARISON: November 2019 through March 2023. BREAST COMPOSITION: The breasts are heterogeneously dense, which may obscure small masses. FINDINGS: No suspicious findings are seen on the current mammogram. Since the prior study, there has been no significant change. CAD detected no significant abnormality. OVERALL FINAL ASSESSMENT: BI-RADS CATEGORY 1 - Negative IMPRESSION: No mammographic evidence of malignancy. RECOMMENDATIONS: Routine mammogram in one year. DICTATION LOCATION: [facility] Ruy Cox MD MAMMO ORDERABLES Final Resul t * COLONOSCOPY REPORT (03/11/2022 10:53 AM CDT) Narrative Procedure Note Chey Jenkins MD - 03/11/2022 10:52 AM CDT [facility] Patient Name: Loraine Patrick Procedure Date: 03/11/2022 Date of : 1965 Age: 56 Attending MD: Chey Jenkins MD, Procedure: Colonoscopy Indications: Surveillance: Personal history of adenomatous polyps on last colonoscopy > 3 years ago, Last colonoscopy: August 2018 Providers: Chey Jenkins MD Referring MD: Shane Crespo MD Complications: No immediate complications. Procedure: Informed consent was obtained for the procedure, including moderate sedation after risks were discussed. Based on the pre-procedure assessment, including review of the patient's medical history, medications, allergies, and review of systems, the patient was deemed to be an appropriate candidate for sedation. A timeout was performed. Continuous ECG monitoring, pulse oximetry, blood pressure monitoring, and direct observation were performed. The scope was introduced through the anus and advanced to the terminal ileum. The colonoscopy was performed without difficulty. The patient tolerated the procedure well. The quality of the bowel preparation was good. Findings: The digital rectal exam was normal. The terminal ileum appeared normal. A few diverticula were found in the left colon. A 2 mm polyp was found in the ascending colon. The polyp was sessile. The polyp was removed with a cold biopsy forceps. Resection and retrieval were complete. A 2 mm polyp was found in the rectum. The polyp was sessile. The polyp was removed with a cold biopsy forceps. Resection and retrieval were complete. Non-bleeding internal hemorrhoids were found. The hemorrhoids were medium-sized. No additional abnormalities were found on retroflexion. Estimated Blood Loss: Estimated blood loss was minimal. Impression: - The examined portion of the ileum was normal. - Diverticulosis in the left colon. - One 2 mm polyp in the ascending colon, removed with a cold biopsy forceps. Resected and retrieved. - One 2 mm polyp in the rectum, removed with a cold biopsy forceps. Resected and retrieved. - Non-bleeding internal hemorrhoids. Recommendation: - Discharge patient to home. - Continue present medications. - Await pathology results. - If you are active on [employer], you will receive the biopsy results as a message via that account. If you do not have [employer] account, you will receive a call from my office regarding your results. If you do not hear from us about your results within a week, please contact our office at [phone] . Chey Jenkins MD 03/11/2022 10:52:34 AM This report has been signed electronically. Number of Addenda: [phone] [address] [place] Chey Jenkins MD GI PROCEDURE ORDERABLES Final Result * POC OCCULT BLOOD, IMMUNO, QUAL, STOOL (11/25/2019 11:20 AM CDT) OCCULT BLOOD, IMMUNOASSAY POC Negative Negative [facility] OFFICE ADMINISTRATION TOWER A [address] INTERNAL KIT QC Pass Pass [facility] OFFICE ADMINISTRATION TOWER A [address] KIT [address] NUMBER POC [id number] [facility] OFFICE ADMINISTRATION TOWER A [address] KIT EXPIRATION DATE POC [phone] [facility] OFFICE ADMINISTRATION TOWER A [address] Stool STOOL SPECIMEN / Unknown 11/25/2019 11:20 AM CDT Ruy Cox MD POINT OF CARE TESTING Final Result [facility] OFFICE ADMINISTRATION TOWER A [address] CLIA# [id number] [address] [facility] [facility] [address] [place] [address] from Last 3 Months or Most Recently Relevant to Health Maintenance Insurance RX [employer] RX Member Subscriber Plan / Payer (Ef fective 2021-Present) Name:Loraine Patrick Relation to Subscriber:Not on file Name:LORAINE PATRICK Subscriber ID:Not on file Date of :1965 Payer ID:Not on file Type:RX Commercial Address: [address] [address] RX [employer] RX Member Subscriber Plan / Payer (Ef fective 2024-Present) Name:Loraine Patrick Relation to Subscriber:Self Name:Loraine Patrick Subscriber ID:Not on file Payer ID:Not on file Type:RX Commercial Address: [address] [employer] BLUE PREFERRED Advance Directives For more information, please contact: [phone] * Full Code (Latest Code Status on File) Date Activated Date Inactivated Comments 03/26/2024 6:54 AM 03/26/2024 10:32 AM * Full Code Date Activated Date Inactivated Comments 03/11/2022 9:45 AM 03/11/2022 1:23 PM * Full Code Date Activated Date Inactivated Comments 08/24/2018 1:49 PM 08/24/2018 5:59 PM Care Teams Locomotive Repairer Diesel Relationship Specialty [place] [address] [facility] [address] [place] [address] PCP - General Internal Medicine 05/11/21
--- OUTSIDE RECORDS SUMMARY | 2025-02-18 12:14 | XMS_ITS | Encounter Summary ---
Author Organization [facility] Address [address] [place] [address] Phone Care Team Providers Care Fountain Roller Assembler Name Role Phone Ruy Cox MD Unavailable [phone] Shane Crespo MD Primary Care Provider [phone] Encounter Details Date Type Department Care Team (Latest Contact Info) Description 01/29/2025 Results Follow-Up [facility] Medicine Rheumatology [address] [facility] [address] [place] [address] Swetha Wells MD [address] [place] [address] CRP (acute phase), Comprehensive metabolic panel, CBC with auto differential, Additional followed-up results: 2 Social History Tobacco Use Types Packs/Day Years Used Date Smoking Tobacco: Never Alcohol Use Standard Drinks/Week Comments Yes 0 (1 standard drink = 0.6 oz pur e alcohol) Comments Unknown Sex and Gender Information Value Date Recorded Sex Assigned at Not on file Legal Sex Female 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
--- OUTSIDE RECORDS SUMMARY | 2025-02-18 12:15 | XMS_ITS | Encounter Summary ---
Author Organization [facility] Address [address] [place] [address] Care Team Providers Care Truck Driver Teamster Name Role Phone Shane Crespo MD Primary Care Provider [phone] Reason for Visit * Reason Onset Date Comments prior authorizations 07/01/2024 Infusions f or [facility] scheduled [id number]*Auth is beiing denied by insurance as the Infusion Center is associated with the hospital. The Infusion Center needs to be a stand a lone facility in order to be approved. Would you please change the request so the PA may be approved. Encounter Details Date Type Department Care Team (Late st Contact Info) Description 07/01/2024 Telephone [facility] Neurology [address] [facility] [id number] [address] [place] [address] [facility] [address] [place] [address] prior authorizations (Infusions for [facility] scheduled [id number]*Auth is beiing denied by insurance as the Infusion Center is associated with the hospital. The Infusion Center needs to be a stand a lone facility in order to be approved. Would you please change the request so the PA may be approved.) Social History Tobacco Use Types Packs/Day Years Used Date Smoking Tobacco: Never Passive Smoke Exposure: Never Smokeless Tobacco: Never Alcohol Use Standard Drinks/Week Comments Not Currently [...] on file Legal Sex Female 11:08 AM WATER SUPERINTENDENT Gender Identity Not on file Sexual Orientation Not on file Occupation Industry Job Start Date Job End Date Not on file Not on file Not on file Not on file documented as of this encounter Miscellaneous Notes * Telephone Encounter - Hortencia Dominguez - 07/08/2024 3:28 PM CST Order was faxed to infusion center. Telephone encounter in chart with information. R SUPERINTENDENT * Telephone Encounter - Carlos Cooper MD - 07/02/2024 10:27 AM WATER SUPERINTENDENT How do I change the order for home infusion service? R SUPERINTENDENT * Telephone Encounter - Carlos Cooper MD - 07/01/2024 11:00 AM WATER SUPERINTENDENT Can we use a home infusion service? R SUPERINTENDENT documented in this encounter Plan of Treatment Upcoming Encounters Date Type Department Care Team (Late st Contact Info) Description 03/20/2025 11:00 AM CDT Office Visit [facility] Internal Medicine [address]atsy L[address]pez [address] [facility] [address] [place] [address] [place] [address] [facility] [address] [place] [address] 04/02/2025 11:30 AM CDT Office Visit [facility] Neurology [facility] [address] [facility] [address] [place] [address] [place] [address] [facility] [address] [place] [address] documented as of this encounter Visit Diagnoses Not on filedocumented in this encounter Additional Health Concerns Assessment Noted Time PHQ-9 Depression Total Score: 2 05/21/20 24 1:00 PM WATER SUPERINTENDENT documented as of this encounter Care Teams Truck Driver Teamster Relationship Specialty [place] [address] [facility] [address] [place] [address] PCP - General Internal Medicine 05/11/21 documented as of this encounter
--- OUTSIDE RECORDS SUMMARY | 2025-02-18 12:15 | XMS_ITS | Clinical Summary ---
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 Current interpretive data was last revised 2022. Calcium 10.0 8.5 - 10.3 mg/dL [facility] Bilirubin, total 0.5 0.1 - 1.2 mg/dL [facility] Protein, pl 7.5 6.5 - 8.5 g/dL [facility] Albumin 4.5 3.5 - 5.0 g/dL [facility] Alk phos 60 40 - 130 Units/L [facility] ALT 21 7 - 45 Units/L [facility] AST 31 10 - 45 Units/L [facility] Blood 01/28/2025 2:58 PM CDT 01/28/2025 7:50 PM CDT us Swetha Wells MD LAB BLOOD ORDERABLES Rita l Result IVETH [address] [address] [place] [address] * MRI Pelvis SI Joints WO Contrast (12/03/2024 7:31 AM CDT) Anatomical Region Laterality Modality Pelvis N/A Magnetic Resonan ce 12/03/2024 7:36 AM CDT Impressions 12/03/2024 7:36 AM CDT Mild degenerative arthritis of both sacroiliac joints. No evidence of sacroiliitis. Additional details above. Electronically signed by: Christiano Patten M.D. Narrative 12/03/2024 7:36 AM CDT MRI pelvis sacroiliac joints without contrast HISTORY: Chronic back and sacroiliac pain. TECHNIQUE: MRI of the pelvis was done without contrast centered on the sacroiliac joints. FINDINGS: There are no prior studies for correlation. There is mild degenerative arthritis of the sacroiliac joints. There is no joint centered bone edema. There are no erosive or destructive changes at the SI joints. There is no fluid in the sacroiliac spaces. Incidentally noted is a 1 cm right ovarian cyst. There is likely moderate common hamstring tendinopathy although the hamstring tendons are incompletely included. Procedure Note Christiano Patten MD - 12/03/2024 MRI pelvis sacroiliac joints without contrast HISTORY: Chronic back and sacroiliac pain. TECHNIQUE: MRI of the pelvis was done without contrast centered on the sacroiliac joints. FINDINGS: There are no prior studies for correlation. There is mild degenerative arthritis of the sacroiliac joints. There is no joint centered bone edema. There are no erosive or destructive changes at the SI joints. There is no fluid in the sacroiliac spaces. Incidentally noted is a 1 cm right ovarian cyst. There is likely moderate common hamstring tendinopathy although the hamstring tendons are incompletely included. IMPRESSION: Mild degenerative arthritis of both sacroiliac joints. No evidence of sacroiliitis. Additional details above. Electronically signed by: Christiano Patten M.D. us Laura Hirsch MD IMG MRI PROCEDURES Fi nal Result * XR Foot Bilateral 3 or More Views of Each (12/02/2024 5:21 PM CDT) Anatomical Region Laterality Modality Lower Extremities, Foot Computed Radiography 12/07/2024 6:11 AM CDT Narrative 12/07/2024 6:14 AM CDT EXAM DESCRIPTION: 1. XR FOOT BILATERAL 3 OR MORE VIEWS OF EACH REASON FOR STUDY: pain, evaluate for inflammatory arthritis vs OA, pain, evaluate for inflammatory arthritis vs OA Complaints of chronic bilateral feet pain. Hx of RA FINDINGS: Three views each foot submitted without comparison. Right foot: No erosions. No acute fracture. Mild midfoot and 1st metatarsophalangeal joint osteoarthritis. Hallux valgus is present. Left foot: No erosions. No acute fracture. Mild midfoot and 1st metatarsophalangeal joint osteoarthritis. Mild hallux valgus. IMPRESSION: 1. No radiographic evidence of inflammatory arthritis. 2. Mild bilateral midfoot and 1st metatarsophalangeal joint osteoarthritis. 3. Mild bilateral hallux valgus. THIS IS AN ELECTRONICALLY VERIFIED FINAL REPORT 12/07/2024 6:14 AM - Electronically signed by Carlos Phan M.D. MF: JOSE ENRIQUE Report ID: [id number] Reading Location: [id number] Procedure Note Carlos Phan MD - 12/07/2024 EXAM DESCRIPTION: 1. XR FOOT BILATERAL 3 OR MORE VIEWS OF EACH REASON FOR STUDY: pain, evaluate for inflammatory arthritis vs OA, pain, evaluate for inflammatory arthritis vs OA Complaints of chronic bilateral feet pain. Hx of RA FINDINGS: Three views each foot submitted without comparison. Right foot: No erosions. No acute fracture. Mild midfoot and 1st metatarsophalangeal joint osteoarthritis. Hallux valgus is present. Left foot: No erosions. No acute fracture. Mild midfoot and 1st metatarsophalangeal joint osteoarthritis. Mild hallux valgus. IMPRESSION: 1. No radiographic evidence of inflammatory arthritis. 2. Mild bilateral midfoot and 1st metatarsophalangeal jointosteoarthritis. 3. Mild bilateral hallux valgus. THIS IS AN ELECTRONICALLY VERIFIED FINAL REPORT 12/07/2024 6:14 AM - Electronically signed by Carlos Phan M.D. MF: JOSE ENRIQUE Report ID: [id number] Reading Location: [id number] us Laura Hirsch MD IMG XR PROCEDURES Fin al Result * XR Knee Bilateral 3 Views (11/20/2024 1:47 PM CDT) Anatomical Region Laterality Modality Lower Extremities, Knee Bilateral Computed Radiography 11/21/2024 4:07 PM CDT Narrative 11/21/2024 4:13 PM CDT EXAM DESCRIPTION: XR HIPS BILATERAL 3-4 VIEWS; XR SACROILIAC JOINTS 3 OR MORE VIEWS; XR SPINE LUMBAR 2 OR 3 VIEWS; XR KNEE BILATERAL 3 VIEWS; XR HAND BILATERAL 3 OR MORE VIEWS OF EACH REASON FOR STUDY: hip pain evaluate for sacroiliitis, pain, evaluate for sacroiliitis low back pain, low back pain knee pain, evaluate for OA, knee pain, evaluate for OA Arthritis x 5 years No sx ; pain, evaluate for inflammatory arthritis vs OA, FINDINGS: Four views hips, three views sacroiliac joints, three views each knee, three views each hand and three views lumbar spine submitted without comparison. Left hand: No erosions. No acute fracture. Ulnar negative variance. No dorsal wrist soft tissue swelling. Right hand: 3rd metacarpal head erosion is present. Ulnar negative variance is present. Mild basal thumb joint osteoarthritis. No dorsal wrist soft tissue swelling. Lumbar spine: No acute fracture. Alignment is normal. Mild L2-L4 degenerative disc disease. Mild inferior lumbar facet osteoarthritis. Sacroiliac joints: No erosions. No acute fracture. The foraminal arcades are intact. Hips: No erosions. No acute fracture. The femoral heads are well seated. The hip joint space heights are normal. Knees: No acute fracture. No erosions. Alignment is normal. Mild medial and patellofemoral bicompartmental bilateral knee osteoarthritis. IMPRESSION: Nonspecific right 3rd metacarpal head erosion. No other radiographic evidence of inflammatory arthritis. Mild L2-L4 degenerative disc disease with inferior lumbar facet osteoarthritis. Normal bilateral hip joint space evaluation. Mild medial and patellofemoral bicompartmental bilateral knee osteoarthritis. THIS IS AN ELECTRONICALLY VERIFIED FINAL REPORT 11/21/2024 4:13 PM - Electronically signed by Carlos Phan M.D. MF: JOSE ENRIQUE Report ID: [id number] Reading Location: [id number] Procedure Note Carlos Phan MD - 11/21/2024 EXAM DESCRIPTION: XR HIPS BILATERAL 3-4 VIEWS; XR SACROILIAC JOINTS 3 OR MORE VIEWS; XR SPINE LUMBAR 2 OR 3 VIEWS; XR KNEE BILATERAL 3 VIEWS; XR HAND BILATERAL 3 OR MORE VIEWS OF EACH REASON FOR STUDY: hip pain evaluate for sacroiliitis, pain, evaluate for sacroiliitis low back pain, low back pain knee pain, evaluate for OA, knee pain, evaluate for OA Arthritis x 5 years No sx ; pain, evaluate for inflammatory arthritis vsOA, FINDINGS: Four views hips, three views sacroiliac joints, three views each knee,three views each hand and three views lumbar spine submitted withoutcomparison. Left hand: No erosions. No acute fracture. Ulnar negative variance. No dorsalwrist soft tissue swelling. Right hand: 3rd metacarpal head erosion is present. Ulnar negative variance ispresent. Mild basal thumb joint osteoarthritis. No dorsal wrist soft tissueswelling. Lumbar spine: No acute fracture. Alignment is normal. Mild L2-L4 degenerative disc disease. Mild inferior lumbar facet osteoarthritis. Sacroiliac joints: No erosions. No acute fracture. The foraminal arcades are intact. Hips: No erosions. No acute fracture. The femoral heads are well seated. Thehip joint space heights are normal. Knees: No acute fracture. No erosions. Alignment is normal. Mild medial and patellofemoral bicompartmental bilateral knee osteoarthritis. IMPRESSION: Nonspecific right 3rd metacarpal head erosion. No other radiographicevidence of inflammatory arthritis. Mild L2-L4 degenerative disc disease with inferior lumbar facet osteoarthritis. Normal bilateral hip joint space evaluation. Mild medial and patellofemoral bicompartmental bilateral kneeosteoarthritis. THIS IS AN ELECTRONICALLY VERIFIED FINAL REPORT 11/21/2024 4:13 PM - Electronically signed by Carlos Phan M.D. MF: JOSE ENRIQUE Report ID: [id number] Reading Location: [id number] us Laura Hirsch MD IMG XR PROCEDURES Fin al Result * XR Hand Bilateral 3 or More Views of Each (11/20/2024 1:47 PM CDT) Anatomical Region Laterality Modality Upper Extremities, Hand Computed Radiography 11/21/2024 4:07 PM CDT Narrative 11/21/2024 4:13 PM CDT EXAM DESCRIPTION: XR HIPS BILATERAL 3-4 VIEWS; XR SACROILIAC JOINTS 3 OR MORE VIEWS; XR SPINE LUMBAR 2 OR 3 VIEWS; XR KNEE BILATERAL 3 VIEWS; XR HAND BILATERAL 3 OR MORE VIEWS OF EACH REASON FOR STUDY: hip pain evaluate for sacroiliitis, pain, evaluate for sacroiliitis low back pain, low back pain knee pain, evaluate for OA, knee pain, evaluate for OA Arthritis x 5 years No sx ; pain, evaluate for inflammatory arthritis vs OA, FINDINGS: Four views hips, three views sacroiliac joints, three views each knee, three views each hand and three views lumbar spine submitted without comparison. Left hand: No erosions. No acute fracture. Ulnar negative variance. No dorsal wrist soft tissue swelling. Right hand: 3rd metacarpal head erosion is present. Ulnar negative variance is present. Mild basal thumb joint osteoarthritis. No dorsal wrist soft tissue swelling. Lumbar spine: No acute fracture. Alignment is normal. Mild L2-L4 degenerative disc disease. Mild inferior lumbar facet osteoarthritis. Sacroiliac joints: No erosions. No acute fracture. The foraminal arcades are intact. Hips: No erosions. No acute fracture. The femoral heads are well seated. The hip joint space heights are normal. Knees: No acute fracture. No erosions. Alignment is normal. Mild medial and patellofemoral bicompartmental bilateral knee osteoarthritis. IMPRESSION: Nonspecific right 3rd metacarpal head erosion. No other radiographic evidence of inflammatory arthritis. Mild L2-L4 degenerative disc disease with inferior lumbar facet osteoarthritis. Normal bilateral hip joint space evaluation. Mild medial and patellofemoral bicompartmental bilateral knee osteoarthritis. THIS IS AN ELECTRONICALLY VERIFIED FINAL REPORT 11/21/2024 4:13 PM - Electronically signed by Carlos Phan M.D. MF: JOSE ENRIQUE Report ID: [id number] Reading Location: [id number] Procedure Note Carlos Phan MD - 11/21/2024 EXAM DESCRIPTION: XR HIPS BILATERAL 3-4 VIEWS; XR SACROILIAC JOINTS 3 OR MORE VIEWS; XR SPINE LUMBAR 2 OR 3 VIEWS; XR KNEE BILATERAL 3 VIEWS; XR HAND BILATERAL 3 OR MORE VIEWS OF EACH REASON FOR STUDY: hip pain evaluate for sacroiliitis, pain, evaluate for sacroiliitis low back pain, low back pain knee pain, evaluate for OA, knee pain, evaluate for OA Arthritis x 5 years No sx ; pain, evaluate for inflammatory arthritis vsOA, FINDINGS: Four views hips, three views sacroiliac joints, three views each knee,three views each hand and three views lumbar spine submitted withoutcomparison. Left hand: No erosions. No acute fracture. Ulnar negative variance. No dorsalwrist soft tissue swelling. Right hand: 3rd metacarpal head erosion is present. Ulnar negative variance ispresent. Mild basal thumb joint osteoarthritis. No dorsal wrist soft tissueswelling. Lumbar spine: No acute fracture. Alignment is normal. Mild L2-L4 degenerative disc disease. Mild inferior lumbar facet osteoarthritis. Sacroiliac joints: No erosions. No acute fracture. The foraminal arcades are intact. Hips: No erosions. No acute fracture. The femoral heads are well seated. Thehip joint space heights are normal. Knees: No acute fracture. No erosions. Alignment is normal. Mild medial and patellofemoral bicompartmental bilateral knee osteoarthritis. IMPRESSION: Nonspecific right 3rd metacarpal head erosion. No other radiographicevidence of inflammatory arthritis. Mild L2-L4 degenerative disc disease with inferior lumbar facet osteoarthritis. Normal bilateral hip joint space evaluation. Mild medial and patellofemoral bicompartmental bilateral kneeosteoarthritis. THIS IS AN ELECTRONICALLY VERIFIED FINAL REPORT 11/21/2024 4:13 PM - Electronically signed by Carlos Phan M.D. MF: JOSE ENRIQUE Report ID: [id number] Reading Location: [place] [id number] us Laura Hirsch MD IMG XR PROCEDURES Fin al Result * XR Hips Bilateral 2 Views (11/20/2024 1:47 PM CDT) Anatomical Region Laterality Modality Lower Extremities, Hip, Pelvis Bilateral C omputed Radiography 11/21/2024 4:07 PM CDT Narrative 11/21/2024 4:13 PM CDT EXAM DESCRIPTION: XR HIPS BILATERAL 3-4 VIEWS; XR SACROILIAC JOINTS 3 OR MORE VIEWS; XR SPINE LUMBAR 2 OR 3 VIEWS; XR KNEE BILATERAL 3 VIEWS; XR HAND BILATERAL 3 OR MORE VIEWS OF EACH REASON FOR STUDY: hip pain evaluate for sacroiliitis, pain, evaluate for sacroiliitis low back pain, low back pain knee pain, evaluate for OA, knee pain, evaluate for OA Arthritis x 5 years No sx ; pain, evaluate for inflammatory arthritis vs OA, FINDINGS: Four views hips, three views sacroiliac joints, three views each knee, three views each hand and three views lumbar spine submitted without comparison. Left hand: No erosions. No acute fracture. Ulnar negative variance. No dorsal wrist soft tissue swelling. Right hand: 3rd metacarpal head erosion is present. Ulnar negative variance is present. Mild basal thumb joint osteoarthritis. No dorsal wrist soft tissue swelling. Lumbar spine: No acute fracture. Alignment is normal. Mild L2-L4 degenerative disc disease. Mild inferior lumbar facet osteoarthritis. Sacroiliac joints: No erosions. No acute fracture. The foraminal arcades are intact. Hips: No erosions. No acute fracture. The femoral heads are well seated. The hip joint space heights are normal. Knees: No acute fracture. No erosions. Alignment is normal. Mild medial and patellofemoral bicompartmental bilateral knee osteoarthritis. IMPRESSION: Nonspecific right 3rd metacarpal head erosion. No other radiographic evidence of inflammatory arthritis. Mild L2-L4 degenerative disc disease with inferior lumbar facet osteoarthritis. Normal bilateral hip joint space evaluation. Mild medial and patellofemoral bicompartmental bilateral knee osteoarthritis. THIS IS AN ELECTRONICALLY VERIFIED FINAL REPORT 11/21/2024 4:13 PM - Electronically signed by Carlos Phan M.D. MF: JOSE ENRIQUE Report ID: [id number] Reading Location: [id number] Procedure Note Carlos Phan MD - 11/21/2024 EXAM DESCRIPTION: XR HIPS BILATERAL 3-4 VIEWS; XR SACROILIAC JOINTS 3 OR MORE VIEWS; XR SPINE LUMBAR 2 OR 3 VIEWS; XR KNEE BILATERAL 3 VIEWS; XR HAND BILATERAL 3 OR MORE VIEWS OF EACH REASON FOR STUDY: hip pain evaluate for sacroiliitis, pain, evaluate for sacroiliitis low back pain, low back pain knee pain, evaluate for OA, knee pain, evaluate for OA Arthritis x 5 years No sx ; pain, evaluate for inflammatory arthritis vsOA, FINDINGS: Four views hips, three views sacroiliac joints, three views each knee,three views each hand and three views lumbar spine submitted withoutcomparison. Left hand: No erosions. No acute fracture. Ulnar negative variance. No dorsalwrist soft tissue swelling. Right hand: 3rd metacarpal head erosion is present. Ulnar negative variance ispresent. Mild basal thumb joint osteoarthritis. No dorsal wrist soft tissueswelling. Lumbar spine: No acute fracture. Alignment is normal. Mild L2-L4 degenerative disc disease. Mild inferior lumbar facet osteoarthritis. Sacroiliac joints: No erosions. No acute fracture. The foraminal arcades are intact. Hips: No erosions. No acute fracture. The femoral heads are well seated. Thehip joint space heights are normal. Knees: No acute fracture. No erosions. Alignment is normal. Mild medial and patellofemoral bicompartmental bilateral knee osteoarthritis. IMPRESSION: Nonspecific right 3rd metacarpal head erosion. No other radiographicevidence of inflammatory arthritis. Mild L2-L4 degenerative disc disease with inferior lumbar facet osteoarthritis. Normal bilateral hip joint space evaluation. Mild medial and patellofemoral bicompartmental bilateral kneeosteoarthritis. THIS IS AN ELECTRONICALLY VERIFIED FINAL REPORT 11/21/2024 4:13 PM - Electronically signed by Carlos Phan M.D. MF: JOSE ENRIQUE Report ID: [id number] Reading Location: [place] [id number] us Laura Hirsch MD IMG XR PROCEDURES Fin al Result * XR Sacroiliac Joints 3 or More Views (11/20/2024 1:47 PM CDT) Anatomical Region Laterality Modality Pelvis, Body N/A Computed Radiogr aphy 11/21/2024 4:07 PM CDT Narrative 11/21/2024 4:13 PM CDT EXAM DESCRIPTION: XR HIPS BILATERAL 3-4 VIEWS; XR SACROILIAC JOINTS 3 OR MORE VIEWS; XR SPINE LUMBAR 2 OR 3 VIEWS; XR KNEE BILATERAL 3 VIEWS; XR HAND BILATERAL 3 OR MORE VIEWS OF EACH REASON FOR STUDY: hip pain evaluate for sacroiliitis, pain, evaluate for sacroiliitis low back pain, low back pain knee pain, evaluate for OA, knee pain, evaluate for OA Arthritis x 5 years No sx ; pain, evaluate for inflammatory arthritis vs OA, FINDINGS: Four views hips, three views sacroiliac joints, three views each knee, three views each hand and three views lumbar spine submitted without comparison. Left hand: No erosions. No acute fracture. Ulnar negative variance. No dorsal wrist soft tissue swelling. Right hand: 3rd metacarpal head erosion is present. Ulnar negative variance is present. Mild basal thumb joint osteoarthritis. No dorsal wrist soft tissue swelling. Lumbar spine: No acute fracture. Alignment is normal. Mild L2-L4 degenerative disc disease. Mild inferior lumbar facet osteoarthritis. Sacroiliac joints: No erosions. No acute fracture. The foraminal arcades are intact. Hips: No erosions. No acute fracture. The femoral heads are well seated. The hip joint space heights are normal. Knees: No acute fracture. No erosions. Alignment is normal. Mild medial and patellofemoral bicompartmental bilateral knee osteoarthritis. IMPRESSION: Nonspecific right 3rd metacarpal head erosion. No other radiographic evidence of inflammatory arthritis. Mild L2-L4 degenerative disc disease with inferior lumbar facet osteoarthritis. Normal bilateral hip joint space evaluation. Mild medial and patellofemoral bicompartmental bilateral knee osteoarthritis. THIS IS AN ELECTRONICALLY VERIFIED FINAL REPORT 11/21/2024 4:13 PM - Electronically signed by Carlos Phan M.D. MF: JOSE ENRIQUE Report ID: [id number] Reading Location: [id number] Procedure Note Carlos Phan MD - 11/21/2024 EXAM DESCRIPTION: XR HIPS BILATERAL 3-4 VIEWS; XR SACROILIAC JOINTS 3 OR MORE VIEWS; XR SPINE LUMBAR 2 OR 3 VIEWS; XR KNEE BILATERAL 3 VIEWS; XR HAND BILATERAL 3 OR MORE VIEWS OF EACH REASON FOR STUDY: hip pain evaluate for sacroiliitis, pain, evaluate for sacroiliitis low back pain, low back pain knee pain, evaluate for OA, knee pain, evaluate for OA Arthritis x 5 years No sx ; pain, evaluate for inflammatory arthritis vsOA, FINDINGS: Four views hips, three views sacroiliac joints, three views each knee,three views each hand and three views lumbar spine submitted withoutcomparison. Left hand: No erosions. No acute fracture. Ulnar negative variance. No dorsalwrist soft tissue swelling. Right hand: 3rd metacarpal head erosion is present. Ulnar negative variance ispresent. Mild basal thumb joint osteoarthritis. No dorsal wrist soft tissueswelling. Lumbar spine: No acute fracture. Alignment is normal. Mild L2-L4 degenerative disc disease. Mild inferior lumbar facet osteoarthritis. Sacroiliac joints: No erosions. No acute fracture. The foraminal arcades are intact. Hips: No erosions. No acute fracture. The femoral heads are well seated. Thehip joint space heights are normal. Knees: No acute fracture. No erosions. Alignment is normal. Mild medial and patellofemoral bicompartmental bilateral knee osteoarthritis. IMPRESSION: Nonspecific right 3rd metacarpal head erosion. No other radiographicevidence of inflammatory arthritis. Mild L2-L4 degenerative disc disease with inferior lumbar facet osteoarthritis. Normal bilateral hip joint space evaluation. Mild medial and patellofemoral bicompartmental bilateral kneeosteoarthritis. THIS IS AN ELECTRONICALLY VERIFIED FINAL REPORT 11/21/2024 4:13 PM - Electronically signed by Carlos Phan M.D. MF: JOSE ENRIQUE Report ID: [id number] Reading Location: [place] [id number] us Laura Hirsch MD IMG XR PROCEDURES Fin al Result * XR Spine Lumbar 2 or 3 Views (11/20/2024 1:47 PM CDT) Anatomical Region Laterality Modality Spine N/A Computed Radiogr aphy 11/21/2024 4:07 PM CDT Narrative 11/21/2024 4:13 PM CDT EXAM DESCRIPTION: XR HIPS BILATERAL 3-4 VIEWS; XR SACROILIAC JOINTS 3 OR MORE VIEWS; XR SPINE LUMBAR 2 OR 3 VIEWS; XR KNEE BILATERAL 3 VIEWS; XR HAND BILATERAL 3 OR MORE VIEWS OF EACH REASON FOR STUDY: hip pain evaluate for sacroiliitis, pain, evaluate for sacroiliitis low back pain, low back pain knee pain, evaluate for OA, knee pain, evaluate for OA Arthritis x 5 years No sx ; pain, evaluate for inflammatory arthritis vs OA, FINDINGS: Four views hips, three views sacroiliac joints, three views each knee, three views each hand and three views lumbar spine submitted without comparison. Left hand: No erosions. No acute fracture. Ulnar negative variance. No dorsal wrist soft tissue swelling. Right hand: 3rd metacarpal head erosion is present. Ulnar negative variance is present. Mild basal thumb joint osteoarthritis. No dorsal wrist soft tissue swelling. Lumbar spine: No acute fracture. Alignment is normal. Mild L2-L4 degenerative disc disease. Mild inferior lumbar facet osteoarthritis. Sacroiliac joints: No erosions. No acute fracture. The foraminal arcades are intact. Hips: No erosions. No acute fracture. The femoral heads are well seated. The hip joint space heights are normal. Knees: No acute fracture. No erosions. Alignment is normal. Mild medial and patellofemoral bicompartmental bilateral knee osteoarthritis. IMPRESSION: Nonspecific right 3rd metacarpal head erosion. No other radiographic evidence of inflammatory arthritis. Mild L2-L4 degenerative disc disease with inferior lumbar facet osteoarthritis. Normal bilateral hip joint space evaluation. Mild medial and patellofemoral bicompartmental bilateral knee osteoarthritis. THIS IS AN ELECTRONICALLY VERIFIED FINAL REPORT 11/21/2024 4:13 PM - Electronically signed by Carlos Phan M.D. MF: JOSE ENRIQUE Report ID: [id number] Reading Location: [id number] Procedure Note Carlos Phan MD - 11/21/2024 EXAM DESCRIPTION: XR HIPS BILATERAL 3-4 VIEWS; XR SACROILIAC JOINTS 3 OR MORE VIEWS; XR SPINE LUMBAR 2 OR 3 VIEWS; XR KNEE BILATERAL 3 VIEWS; XR HAND BILATERAL 3 OR MORE VIEWS OF EACH REASON FOR STUDY: hip pain evaluate for sacroiliitis, pain, evaluate for sacroiliitis low back pain, low back pain knee pain, evaluate for OA, knee pain, evaluate for OA Arthritis x 5 years No sx ; pain, evaluate for inflammatory arthritis vsOA, FINDINGS: Four views hips, three views sacroiliac joints, three views each knee,three views each hand and three views lumbar spine submitted withoutcomparison. Left hand: No erosions. No acute fracture. Ulnar negative variance. No dorsalwrist soft tissue swelling. Right hand: 3rd metacarpal head erosion is present. Ulnar negative variance ispresent. Mild basal thumb joint osteoarthritis. No dorsal wrist soft tissueswelling. Lumbar spine: No acute fracture. Alignment is normal. Mild L2-L4 degenerative disc disease. Mild inferior lumbar facet osteoarthritis. Sacroiliac joints: No erosions. No acute fracture. The foraminal arcades are intact. Hips: No erosions. No acute fracture. The femoral heads are well seated. Thehip joint space heights are normal. Knees: No acute fracture. No erosions. Alignment is normal. Mild medial and patellofemoral bicompartmental bilateral knee osteoarthritis. IMPRESSION: Nonspecific right 3rd metacarpal head erosion. No other radiographicevidence of inflammatory arthritis. Mild L2-L4 degenerative disc disease with inferior lumbar facet osteoarthritis. Normal bilateral hip joint space evaluation. Mild medial and patellofemoral bicompartmental bilateral kneeosteoarthritis. THIS IS AN ELECTRONICALLY VERIFIED FINAL REPORT 11/21/2024 4:13 PM - Electronically signed by Carlos Phan M.D. MF: JOSE ENRIQUE Report ID: [id number] Reading Location: [place] [address] Laura Hirsch MD IMG XR PROCEDURES Fin al Result * 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 (11/19/2024 6:23 PM CDT) HLA-B27 interp HLA-B*27 is Positive. HISTOTRAC Blood 11/19/2024 6:23 PM CDT 11/22/2024 2:25 PM CDT Narrative HISTOTRAC - 11/22/2024 2:25 PM CDT HLA-B typing is performed using the reverse sequence specific oligonucleotide (r-SSO) method, which is based on an FDA approved IVD kit and validated by the [facility] HLA laboratory. Interpretive comments: HLA-B*27 positivity confers increased risk for ankylosing spondylitis or nonradiographic axial spondyloarthritis. The absence of HLA-B*27 may help rule out these diagnoses Expected: HLA-B*27 has been found in 74% to 89% of patients with either nonradiographic axial spondyloarthritis or ankylosing spondylitis. The absolute risk of spondyloarthritis in persons with HLA-B*27 is 2% to 10%. (N Engl J Med 2016;374:2563-74) Testing performed at the [facility], [address], 5th floor, [place], [address]. [facility] # [id number]. Liset Hodegs, Ph.D., Cutter Machine Tender, HLA Laboratory Devan Roman M.D., Ph.D., Simulation Tech, HLA Laboratory Dottie Carrillo, Ph.D., CHRISTALIA Simulation Tech, [facility] Current methodology and interpretive comments were last revised on 01/09/2017 us Laura Hirsch MD LAB BLOOD ORDERABLES Final Result HISTOTRAC * (ABNORMAL) SHANNAN ab ql w/rflx to SHANNAN qn (11/19/2024 3:11 PM CDT) SHANNAN Positive 1:80 Comment: Interpretive Data Normal range for SHANNAN Qualitative Antibody = Negative. 1. SHANNAN is performed using indirect immunofluorescence against HEp-2 cells 2. SHANNAN titers are performed on all positive qualitative results. 3. A significantly positive SHANNAN result is defined as a positive nuclear fluorescence at a titer of 1:80 or greater. 4. 15% of normal people above age 65 have significantly positive SHANNAN results. 5% or less of normal people age 65 or under have significantly positive SHANNAN results. Current interpretive data was last revised on 2020. Testing performed by: [facility], [address] [place] [address]., [id number] SHANNAN, quant 1:80 titer IVETH Comment:Testing performed by : [facility], [address] [place] [address]., [id number] SHANNAN, interp Homogeneous (A) IVETH CH Comment:Testing performed by : [address] [address] Blood 11/19/2024 3:11 PM CDT 11/20/2024 10:02 AM CDT us Laura Hirsch MD LAB BLOOD ORDERABLES Final Result Performing Organization Address City/[facility]/[place] [address] [address] Department [email or web address] [place] [address] * Collection Task for HLA Typing 1 (11/19/2024 3:11 PM CDT) [facility] HLA Class I DNA (ABC) Recipient Received Comment:Testing performed by : [facility], [address] [place]., [address] Blood 11/19/2024 3:11 PM CDT 11/20/2024 10:56 AM CDT us Laura Hirsch MD LAB BLOOD ORDERABLES Final Result Performing Organization Address [facility] Co de Phone Number IVETH [place] [address] [address] Department [email or web address] [address] * eGFR (11/19/2024 3:11 PM CDT) [facility] eGFR 64 >=60 mL/min/1. 73 m2 Comment: Interpretive Data Reference Interval Normal >/= 90 mL/min/1.73m2 Mildly decreased* 60 - 89 mL/min/1.73m2 Mildly to moderately decreased 45 - 59 mL/min/1.73m2 Moderately to severely decreased 30 - 44 mL/min/1.73m2 Severely decreased 15 - 29 mL/min/1.73m2 Kidney Failure < 15 mL/min/1.73m2 *Relative to young adult level Estimated glomerular filtration rate is determined by the 2020 CKD-EPI equation recommended by the National Kidney Foundation (A Unifying Approach to GFR Estimation: Recommendations of the NKF-ASK Task Force on Reassessing the Inclusion of Race in Diagnosing Kidney Disease, JASN 2020). The CKD-EPI equation should not be used for patients with unstable renal function and has not been validated in children and those over 70. Current interpretive data was last reviewed 2021. Blood 11/19/2024 3:11 PM CDT 11/19/2024 7:15 PM CDT us Laura Hirsch MD LAB BLOOD ORDERABLES Final Result [facility] [address] Department [place] [address] * (ABNORMAL) Differential, auto (11/19/2024 3:11 PM CDT) Neutrophil abs 3.71 1.50 - 6.50 K/cumm Imm gran abs 0.11(H) 0.00 - 0.10 K/cumm [facility] Lymphocyte abs 2.43 0.80 - 3.30 K/cumm [facility] Monocyte abs 0.79 0.20 - 0.80 K/cumm [facility] Eosinophil abs 0.19 0.00 - 0.50 K/cumm [facility] Basophil abs 0.04 0.00 - 0.10 K/cumm [facility] Neutrophil pct 51.0 % [facility] Comment: Interpretive Data Percent cell count reference ranges are not reported, since discordance with absolute values may lead to misinterpretation of CBC data. Current Interpretive Data was last revised on 2017. Imm gran pct 1.5 % [facility] Comment: Interpretive Data Percent cell count reference ranges are not reported, since discordance with absolute values may lead to misinterpretation of CBC data. Current Interpretive Data was last revised on 2017. Lymphocyte pct 33.4 % [facility] Comment: Interpretive Data Percent cell count reference ranges are not reported, since discordance with absolute values may lead to misinterpretation of CBC data. Current Interpretive Data was last revised on 2017. Monocyte pct 10.9 % [facility] Comment: Interpretive Data Percent cell count reference ranges are not reported, since discordance with absolute values may lead to misinterpretation of CBC data. Current Interpretive Data was last revised on 2017. Eosinophil pct 2.6 % [facility] Comment: Interpretive Data Percent cell count reference ranges are not reported, since discordance with absolute values may lead to misinterpretation of CBC data. Current Interpretive Data was last revised on 2017. Basophil pct 0.6 % [facility] Comment: Interpretive Data Percent cell count reference ranges are not reported, since discordance with absolute values may lead to misinterpretation of CBC data. Current Interpretive Data was last revised on 2017. Blood 11/19/2024 3:11 PM CDT 11/19/2024 6:50 PM CDT Laura Hirsch MD LAB BLOOD ORDERABLES Final Result [place] [address] [address] [email or web address] [address] * C4 complement (11/19/2024 3:11 PM CDT) Complement C4 22 10 - 40 mg/dL Blood 11/19/2024 3:11 PM CDT 11/19/2024 7:00 PM CDT Laura Hirsch MD LAB BLOOD ORDERABLES Final Result Performing Organization Address [facility] Co de Phone Number SYLWIAROSALINDA ROSENTHAL [address] [address] [email or web address] [address] * CLYDE ab eval w/reflex (11/19/2024 3:11 PM CDT) CLYDE ab Negative Negative Comment: Interpretive Data Positive Screens will be reflexed to specific testing for Antibodies against the following antigens: Mariam-1 Ab, SUPPLY OFFICER Ab, Scl-70 Ab, Kathleen Ab, SS-A/Ro Ab, and SS- B/La Ab. Further testing for dsDNA, Centromere, or Ribosomal P antibodies is suggested in patient with a positive screen and negative specific antibodies. Current interpretive data was last revised on 2022. Testing performed by: [facility], [address] [facility], [place]., [address] Blood 11/19/2024 3:11 PM CDT 11/20/2024 10:01 AM CDT Laura Hirsch MD LAB BLOOD ORDERABLES Final Result Performing Organization Address City/[facility] Co de Phone Number SYLWIAROSALINDA ROSENTHAL [address] [address] Department [place] [address] * TB test, quantiferon gold (11/19/2024 3:11 PM CDT) [facility] Quantiferon TB Gold Negative Negative [facility] Comment: No interferon-gamma response to M. tuberculosis antigens was detected. Latent infection with M. tuberculosis is unlikely. A single negative result does not exclude infection with M. tuberculosis. In patients at high risk for M.tuberculosis infection, a second test should be considered in accordance with the 2017 ATS/IDSA/CDC Clinical Practice Guidelines for Diagnosis of Tuberculosis in Adults and Children [Lewinsohn DM et. al. Clin. Infect. Dis. 2017;64(2):111-115]. The reference range for the 'TB1 Ag minus Nil Result' and 'TB2 Ag minus Nil Result' is an Interferon-gamma level <0.35 IU/mL. TB-Nil 0.01 IUnits/mL [facility] TB2-Nil 0.01 IUnits/mL [facility] Mitogen-Nil 9.96 IUnits/mL [facility] NIL 0.04 IUnits/mL [facility] Comment: Test Performed by: [place] [address] Psychiatrist: Linda Maria Ph.D.; CLIA# [id number] Blood 11/19/2024 3:11 PM CDT 11/19/2024 7:00 PM CDT Laura Hirsch MD LAB BLOOD ORDERABLES Final Result IV[place] [address] [address] Department [place] [address] [facility] * (ABNORMAL) CBC with auto differential (11/19/2024 3:11 PM CDT) [facility] WBC 7.27 3.80 - 9.90 K/cumm Hgb 11.4(L) 11.9 - 15.5 g/dL [facility] Hct 36.5 35.6 - 45.5 % [facility] Plt 313 150 - 400 K/cumm [facility] MPV 11.6 9.1 - 12.3 fL [facility] RBC 3.21(L) 3.90 - 5.20 M/cumm [facility] MCV 113.7(H) 81.3 - 96.4 fL [facility] MCH 35.5(H) 27.1 - 33.3 pg [facility] MCHC 31.2(L) 32.3 - 35.7 g/dL [facility] RDW CV 15.9(H) 11.1 - 14.9 % [facility] RDW SD 66.0(H) 35.7 - 48.1 fL [facility] NRBC abs 0.00 0.00 - 0.01 K/cumm [facility] Blood 11/19/2024 3:11 PM CDT 11/19/2024 6:50 PM CDT Laura Hirsch MD LAB BLOOD ORDERABLES Final Result [facility] [address] [address] Department [place] [address] * HLA-B27 antigen (11/19/2024 3:11 PM CDT) HLA-B27 ag Positive Not Applicable [facility] Lab HLA-B27 interp See Footnote IVETH ROSENTHAL Comment: HLA-B27 antigen was detected. Approximately 8% of the normal population carries the HLA-B27 antigen. HLA-B27 is present in approximately 89% of patients with ankylosing spondylitis, 79% of patients with reactive arthritis, and 42% of patients with juvenile rheumatoid arthritis. However, lacking other data, it is not diagnostic for these disorders. This test does not differentiate B27 alleles. i.e. B*27:05, B*27:06, etc. ADDITIONAL INFORMATION Method: Flow Cytometry CLIA: [id number] CLIA Psychiatrist: LINDA MARIA,Ph.D. Test Performed by: [address] [address] Psychiatrist: Linda Maria Ph.D.; CLIA# [id number] Blood 11/19/2024 3:11 PM CDT 11/20/2024 8:47 AM CDT Laura Hirsch MD LAB BLOOD ORDERABLES Final Result [place] [address] [address] Department [email or web address] [place] [address] [facility] * Cyclic citrul peptide antibody, IgG (11/19/2024 3:11 PM CDT) Pathologist [facility] CCP Ab <0.5 <=2.9 units/mL Comment: Interpretive data Negative: <3 units/mL Positive: > or equal to 3 units/mL Current interpretive data was last revised on 2016. Testing performed by: [facility], [address] [place] [address]., [address] Blood 11/19/2024 3:11 PM CDT 11/20/2024 10:02 AM CDT us Laura Hirsch MD LAB BLOOD ORDERABLES Final Result Performing Organization Address [facility]/ZIP Co de Phone Number IVETH GALO [address] [address] Department [place] [address] * Erythrocyte sedimentation rate (11/19/2024 3:11 PM CDT) Pathologist [facility] Erythrocyte sedimentation rate 10 1 - 30 mm/hr Comment:Testing performed by : [facility], [facility], [place], [address] Blood 11/19/2024 3:11 PM CDT 11/19/2024 6:50 PM CDT Laura Hirsch MD LAB BLOOD ORDERABLES Final Result SYLWIAROSALINDA [place]ENT[place] [address] [address] Department [email or web address] [address] * Rheumatoid factor (11/19/2024 3:11 PM CDT) Pathologist [facility] Rheumatoid factor, quant 11 <=15 IUnits/mL Blood 11/19/2024 3:11 PM CDT 11/19/2024 7:00 PM CDT Laura Hirsch MD LAB BLOOD ORDERABLES Final Result [facility] [address] [address] [facility] [email or web address] [address] * C3 complement (11/19/2024 3:11 PM CDT) [facility] Complement C3 100 90 - 180 mg/dL Blood 11/19/2024 3:11 PM CDT 11/19/2024 7:00 PM CDT Laura Hirsch MD LAB BLOOD ORDERABLES Final Result Performing Organization Address [facility] Co de Phone Number IVETH [address] [address] [facility] [email or web address] [address] * CRP (acute phase) (11/19/2024 3:11 PM CDT) [facility] CRP <3.0 <=10.0 mg/L Blood 11/19/2024 3:11 PM CDT 11/19/2024 7:00 PM CDT Laura Hirsch MD LAB BLOOD ORDERABLES Final Result Performing Organization Address [facility] Co de Phone Number [facility] [address] [address] [facility] [email or web address] [address] * Comprehensive metabolic panel (11/19/2024 3:11 PM CDT) [facility] Sodium 138 135 - 145 mmol/L Potassium, pl 3.6 3.3 - 4.9 mmol/L [facility] Chloride 103 97 - 110 mmol/L [facility] CO2 24 22 - 32 mmol/L [facility] Anion gap 11 2 - 15 mmol/L [facility] BUN 23 6 - 25 mg/dL [facility] Creatinine 1.01 0.60 - 1.10 mg/dL [facility] Glucose 91 70 - 199 mg/dL [facility] Comment: Interpretive Data Fasting glucose >/= 126 mg/dl is diagnostic for diabetes. Fasting is defined as no caloric intake for at least 8 hours. Fasting glucose between 100 mg/dl to 125 mg/dl is diagnostic of prediabetes. In a patient with classic symptoms of hyperglycemia or hyperglycemic crisis, a random glucose >/= 200 mg/dl is diagnostic for diabetes. In the absence of unequivocal hyperglycemia, results should be confirmed by repeat testing. The classification and Diagnosis of Diabetes Diabetes Care 202; 46: S19-S40. Current interpretive data was last revised 2022. Calcium 9.6 8.5 - 10.3 mg/dL [facility] Bilirubin, total 0.4 0.1 - 1.2 mg/dL [facility] Protein, pl 7.2 6.5 - 8.5 g/dL [facility] Albumin 4.3 3.5 - 5.0 g/dL [facility] Alk phos 58 40 - 130 Units/L [facility] ALT 27 7 - 45 Units/L [facility] AST 37 10 - 45 Units/L [facility] Blood 11/19/2024 3:11 PM CDT 11/19/2024 7:00 PM CDT Laura Hirsch MD LAB BLOOD ORDERABLES Final Result [facility] [address] [address] Department [place] [address] * Screening Mammogram 2D Bilateral (01/29/2013 12:00 AM CDT) Anatomical Region Laterality Modality Breast Bilateral Mammography 01/29/2013 3:30 PM CDT Narrative 01/30/2013 3:39 PM CDT Patient Name: LORAINE GOMES S.S.N.: [id number] Visit ID Number: [id number] Patient Type: O Date of : 1965 Doctor Name: FLORINA RANDHAWA MD Patient Location: RAD EXAM DATE: 01/29/2013 TIME: 15:21 HISTORY: SCREENING PRIMARY EXAM #: [id number] EXAM(S) PERFORMED: SCREENING MAMM BI CPT Code(s): 66015 Family history of breast cancer in grandmother at age 40. Taking hormonal contraceptives beginning at age 18. Last mammogram was performed 1 year and 2 months ago. NO CONCERNS SCREENING MAMM BI: January 29, 2013 - Exam #: [id number] Bilateral CC and MLO view(s) were taken. Technologist: KAY KEMP Prior study comparison: December 20, 2011, right breast diag mamm R, performed at [facility]. December 12, 2011, bilateral SCREENING MAMM BI. November 16, 2010, bilateral screening mammogram. November 03, 2010, breast ultrasound. The breast tissue is heterogeneously dense. This may lower the sensitivity of mammography. The right anterior breast partially obscured ovoid 2.8 cm cyst has enlarged compared to the 2012 exam by 1 cm. It was previously confirmed as a cyst at [facility] in 2012. No other dominant mass, malignant type calcifications, significant skin thickening, nipple retraction, or suspicious lymphadenopathy is noted. The CAD review showed no significant findings. ASSESSMENT: Category 2 Benign Routine screening mammogram in 1 year. Please note, mammography may miss an estimated 10 - 15% of breast cancers. A suspicious palpable lesion should be referred for surgical evaluation and possible tissue diagnosis. Electronically Signed by: ADDISON GUO M.D. Signature Date: 01/30/2013 Signature Time: 15:39 Read by: 91Toro DVI Job Number: Read date: Read time: Vinyl Top Installer ID: [id number] Date Transcribed: 01/30/2013 Time transcribed: 15:39:00 Copy Doctor 1: Copy Doctor 2: Copy Doctor 3: Jeni The information contained in this report is private and confidential and is the property of the generating facility. If you are not the intended recipient of this report, be advised that any unauthorized use, disclosure, copying, distribution, or the taking of any action in reliance on the contents of this report is strictly prohibited. If you have received this report in error, please immediately notify the sender via telephone at to arrange for the return of the forwarded document(s) to us. Radiology Report Our family cares about your family. Page 1 of 1 Procedure Note Provider, MD Sandra - 10/14/2016 Patient Name: LORAINE GOMES S.S.N.: [id number] Visit ID Number:[id number] Patient Type: O Date of : 1965 Doctor Name: FLORINA RANDHAWA MD Patient Location: RAD EXAM DATE: 01/29/2013 TIME: 15:21 HISTORY: SCREENING PRIMARY EXAM #: [id number] EXAM(S) PERFORMED: SCREENING MAMM BI CPT Code(s): 80376 Family history of breast cancer in grandmother at age 40. Takinghormonal contraceptives beginning at age 18. Last mammogram was performed 1 yearand 2 months ago. NO CONCERNS SCREENING MAMM BI: January 29, 2013 - Exam #: [id number] Bilateral CC andMLO view(s) were taken. Technologist: KAY KEMP Prior study comparison: 2011, right breast diag mamm R, performed at [facility]. November, bilateral SCREENING MAMM BI. November 16, 2010, bilateral screening mammogram.November 03, 2010, breast ultrasound. The breast tissue is heterogeneously dense.This may lower the sensitivity of mammography. The right anterior breastpartially obscured ovoid 2.8 cm cyst has enlarged compared to the 2012 exam by 1 cm.It was previously confirmed as a cyst at [facility] in 2011. No other dominantmass, malignant type calcifications, significant skin thickening, nippleretraction, or suspicious lymphadenopathy is noted. The CAD review showed nosignificant findings. ASSESSMENT: Category 2 Benign Routine screening mammogram in 1 year. Please note, mammography may miss an estimated 10 - 15% of breast cancers.A suspicious palpable lesion should be referred for surgical evaluationand possible tissue diagnosis. Electronically Signed by: ADDISON GUO M.D. Signature Date: 01/30/2013 Signature Time: 15:39 Read by: [id number] DVI Job Number: Read date: Read time: Vinyl Top Installer ID: [id number] Date Transcribed: 01/30/2013 Time transcribed: 15:39:00 Copy Doctor 1: Copy Doctor 2: Copy Doctor 3: [place] The information contained in this report is private and confidential and is the propertyof the generating facility. If you are not the intended recipient of thisreport, be advised that any unauthorized use, disclosure, copying, distribution, orthe taking of any action in reliance on the contents of this report isstrictly prohibited. If you have received this report in error, pleaseimmediately notify the sender via telephone at to arrange for thereturn of the forwarded document(s) to us. Radiology Report Our family cares about your family. Page 1 of 1 us Historical Provider MD CASILLAS MAMMO PROCEDURES Rita l Result from Last 3 Months or Most Recently Relevant to Health Maintenance [place] Care Teams Hand Buffing Wheel Former Relationship Specialty Start Date End Date Ruy Cox MD [address] [facility] [address] [place] [address] PCP - hat and cap sewer Obstetrics and Gynecology 07/19/18 [place] [address] [place] [address] PCP - General Internal Medicine 11/28/22
--- OUTSIDE RECORDS SUMMARY | 2025-02-18 12:15 | XMS_ITS | Clinical Summary ---
Author Organization [facility] Address [address] [place] [id number] Care Team Providers Care Modular Set Crew Member Name Role Phone Shane Crespo MD Primary Care Provider +1- [phone] Allergies Active Allergy Reactions Criticality Noted Date Comments Aspirin Hives 03/07/2023 Codeine Hives 03/07/2023 Latex Rash Low 03/07/2023 Morphine Hives 03/07/2023 Medications No known medications Social History Tobacco Use Types Packs/Day Years Used Date Smoking Tobacco: Never Assessed Comments No Sex and Gender Information Value Date Recorded Sex Assigned at Not on file Legal Sex Female 5:46 PM CDT Gender Identity Not on file Sexual Orientation Not on file Last Filed Vital Signs Vital Sign Reading Time Taken Comments Blood Pressure 143/86 05/26/2024 7:00 PM MICA BUILDER Pulse 88 05/26/2024 7:00 PM MICA BUILDER Temperature 36.4 C (97.6 F) 05/26/2024 2:25 PM MICA BUILDER Respiratory Rate 17 05/26/2024 7:00 PM MICA BUILDER Oxygen Saturation 100% 05/26/2024 7:00 PM MICA BUILDER Inhaled Oxygen Concentration - - Weight 69.4 kg (153 lb) 05/26/2024 2:25 PM MICA BUILDER Height 154.9 cm (5' 1) 05/26/2024 2:25 PM MICA BUILDER Body Mass Index 28.91 05/26/2024 2:25 PM MICA BUILDER Plan of Treatment Health Maintenance Due Date Last Done Comments Cervical Cancer Screening Pap Smear (Age 30 to 64) Every 3 Years 1965 Colorectal Cancer Screening Colonoscopy (10 Years) 1965 Annual Physical 1968 Hepatitis C 1983 Cervical Cancer Screening Pap with HPV Testing (Age 30 to 64) Every 5 Years 1995 Cervical Cancer Screening with HPV 1995 Pneumococcal Vaccine: 50+ Years (1 of 1 - PCV) 2015 Zoster Vaccines (1 of 2) 2015 DTaP, Tdap and Td Vaccines (4 - Td or Tdap) 07/02/2022 07/02/2012, 03/04/2012, 06/19/2004 COVID-19 Vaccine (5 - season) 2024 04/19/2022, 05/03/2021, 09/08/2020, Additional history exists Mammogram Screening 04/08/2026 04/08/2024, 04/04/2023, 03/15/2022, Additional history exists Meningococcal B Vaccine Aged Out No l onger eligible based on patient's age to complete this topic Meningococcal Vaccine Aged Out No eulalio geraldine eligible based on patient's age to complete this topic RSV Immunizations Under 20 Months Aged Out No longer eligible based on patient's age to complete this topic [place] [address] Care Teams Modular Set Crew Member Relationship Specialty [place] [address] [facility] [address] [place] [id number] PCP - General EMERGENCY MEDICINE 05/26/24
[2025-02-18 12:36] VITALS: BP 124/64; PULSE 112; RESP 18; TEMP 36.8; O2SAT 100
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
[2025-02-18] MEDS: HYDROcodone/acetaminophen (*CRX) 5-325 MG TABLET 1 TAB PO (14:19)
--- OUTSIDE RECORDS SUMMARY | 2025-02-18 15:13 | XMS_ITS | Clinical Summary ---
Author Organization [facility] Address [address] [place] [id number] Care Team Providers Care Keg Header Name Role Phone Shane Crespo MD Primary Care Provider +1- [phone] Allergies Active Allergy Reactions Criticality Noted Date [...] Comments Blood Pressure 143/86 05/26/2024 7:00 PM CARRIER LOADER Pulse 88 05/26/2024 7:00 PM CARRIER LOADER Temperature 36.4 C (97.6 F) 05/26/2024 2:25 PM CARRIER LOADER Respiratory Rate 17 05/26/2024 7:00 PM CARRIER LOADER Oxygen Saturation 100% 05/26/2024 7:00 PM CARRIER LOADER Inhaled Oxygen Concentration - - Weight 69.4 kg (153 lb) 05/26/2024 2:25 PM CARRIER LOADER Height 154.9 cm (5' 1) 05/26/2024 2:25 PM CARRIER LOADER Body Mass Index 28.91 05/26/2024 2:25 PM CARRIER LOADER Plan of Treatment Health Maintenance Due Date [...] patient's age to complete this topic [place] [address] [address] [place] [address] Care Teams Keg Header Relationship Specialty [place] [address] [facility] [address] [place] [phone] PCP - General EMERGENCY MEDICINE 05/26/24
--- OUTSIDE RECORDS SUMMARY | 2025-02-18 15:13 | XMS_ITS | Encounter Summary ---
Author Organization [facility] Address [address] [place] [address] Care Team Providers Care Dent Remover Name Role Phone Shane Crespo MD Primary Care Provider +1- [phone] Reason for Visit * Reason Onset Date Comments prior authorizations 07/01/2024 Infusions f or [facility] scheduled [id number]*Auth is beiing denied by insurance as the Infusion Center is associated with the hospital. The Infusion Center needs to be a stand a lone facility in order to be approved. Would you please change the request so the PA may be approved. Encounter Details Date Type Department Care Team (Late st Contact Info) Description 07/01/2024 Telephone [facility] Neurology [address] [facility] [id number] [address] [place] [address] [facility] [address] [place] [address] prior authorizations (Infusions for [facility] scheduled [id number]*Auth is beiing denied by insurance as the [...] on file Legal Sex Female 11:08 AM CHIROPRACTIC NEUROLOGIST Gender Identity Not on file Sexual Orientation Not on file Occupation Industry Job Start Date Job End Date Not on file Not on file Not on file Not on file documented as of this encounter Miscellaneous Notes * Telephone Encounter - Hortencia Dominguez - 07/08/2024 3:28 PM CST Order was faxed to infusion center. Telephone encounter in chart with information. OPRACTIC NEUROLOGIST * Telephone Encounter - Carlos Cooper MD - 07/02/2024 10:27 AM CHIROPRACTIC NEUROLOGIST How do I change the order for home infusion service? OPRACTIC NEUROLOGIST * Telephone Encounter - Carlos Cooper MD - 07/01/2024 11:00 AM CHIROPRACTIC NEUROLOGIST Can we use a home infusion service? OPRACTIC NEUROLOGIST documented in this encounter Plan of Treatment Upcoming Encounters Date Type Department Care Team (Late st Contact Info) Description 03/20/2025 11:00 AM CDT Office Visit [facility] Internal Medicine [address] [address] [facility] [address] [place] [address] [place] [address] [facility] [address] [place] [address] 04/02/2025 11:30 AM CDT Office Visit [facility] Neurology [facility] [address] [facility] [address] [place] [address] [place] [address] [facility] [address] [place] [address] documented as of this encounter Visit Diagnoses Not on filedocumented in this encounter Additional Health Concerns Assessment Noted Time PHQ-9 Depression Total Score: 2 05/21/20 24 1:00 PM CHIROPRACTIC NEUROLOGIST documented as of this encounter Care Teams Dent Remover Relationship Specialty Start [place] [address] [facility] [address] [place] [phone] PCP - General Internal Medicine 05/11/21 documented as of this encounter
--- OUTSIDE RECORDS SUMMARY | 2025-02-18 15:13 | XMS_ITS | Clinical Summary ---
Author Organization [facility] D Address [address] [place] [address] Care Team Providers Care Library Consultant Name Role Phone Ruy Cox MD Unavailable [phone] Shane Crespo MD Primary Care Provider [phone] Allergies Active Allergy Reactions Criticality Noted Date Comments Aspirin Hives Reaction: HIVES, , , Igtezphnte-Xzoofdn-Qfmzqdm e Hives Medium Codeine Hives Medium Epinephrine Unknown Low Reaction as a child. Hasn't had since Iodine Hives,Shortness of breath High Latex Itching,Rash,Swelli ng Medium 02/09/2023 Leflunomide Fever,Headache,Othe r (See comments) High 04/09/2018 Meperidine Morphine Hives Medium Prochlorperazine Shellfish Containing Products Urticaria High 11/25/2019 Tripoli Hives Medium Venom-Honey Bee Swelling Medium Heart [...] 07/31/2024 Assessment & Plan (07/31/2024 12:16 PM DETECTIVE BUREAU CHIEF): Rec tea tree eyelid wipes daily and [...] in the AM we will start w/ leif qhs OU, CPM restasis bid, warm compresses prn, and PFATs qid+. Pt elects to f/u w/ primary eye care provider closer to home, will return prn for possible flares. Assessment & Plan (07/29/2024 11:11 AM DETECTIVE BUREAU CHIEF): Cont Restasis BID OU Anterior scleritis of both eyes 07/25/2024 Assessment & Plan (07/31/2024 12:15 PM DETECTIVE BUREAU CHIEF): No scleritis, taper Durezol 3-2-1 over the next 3 weeks Call with recurrent sx Assessment & Plan (07/29/2024 11:11 AM DETECTIVE BUREAU CHIEF): Trace sectorial scleritis status post (s/p) 10% [...] 06/21/2022 Assessment & Plan (07/29/2024 11:10 AM DETECTIVE BUREAU CHIEF): No associated iritis as this time Celiac [...] Department Care Team Description 01/29/2025 Orders Only [facility] ([facility]) - [facility] E[facility] [address] [facility] Advanced [facility] 11th [place] [address] [place] [address] Loulou Manzano MD Sjogren's syndrome, with unspecified organ involvement (Primary Dx) 01/29/2025 Telephone [place] [facility] ([facility]) - [facility] ENT [address] [facility] 11th [place] [address] [place] [phone] Parth Ramona, MARK 01/29/2025 Results Follow-Up [facility] 1 [facility] [address] [place] [phone] Swetha Wells MD CRP (acute phase), Comprehensive metabolic panel, CBC with auto differential, Additional followed-up results: 2 01/28/2025 2:58 PM CDT - 01/28/2025 11:59 PM CDT Hospital Encounter [place] [id number] [place] [address] Rheumatoid arthritis of other site, unspecified whether rheumatoid factor present (HCC); Anterior scleritis of both eyes; High risk medication use Discharge Disposition: Discharge to home or self care 01/28/2025 2:50 PM CDT Lab [facility] Infectious Diseases 1 [facility] [address] [place] [address] 01/28/2025 2:00 PM CDT Office Visit [facility] 1 [facility] 1 [place] [phone] Swetha Wells MD Rheumatoid arthritis of other site, unspecified whether rheumatoid factor present (HCC) (Primary Dx); Anterior scleritis of both eyes; High risk medication use; 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 [address] [facility] [address] [place] [phone] Anterior scleritis of both eyes (Primary Dx) 01/06/2025 Telephone [facility] Infusion [place] [address] [facility] [address] [place] [address] Paola Garcia RN 12/19/[address] [facility] [address] [facility] [address] [place] [address] Laura Hirsch MD 12/19/[address] [facility] 4 [facility] [address] [place] [address] Patsy Mata RN 12/13/2024 Results Follow-Up [facility] [address] [facility] Advanced [facility] 5th [place] [address] [place] [address] Laura Hirsch MD XR Foot Bilateral 3 or More Views of Each 12/06/2024 Results Follow-Up [facility] [address] [facility] 5th [place] [address] [place] [address] Laura Hirsch MD MRI Pelvis SI Joints WO Contrast 12/03/2024 6:37 AM CDT - 12/03/2024 11:59 PM CDT Hospital Encounter [facility] [address] [place] [phone] Chronic bilateral low back pain without sciatica Discharge Disposition: Discharge to home or self care 12/02/2024 5:06 PM CDT - 12/02/2024 11:59 PM CDT Hospital Encounter [facility] 1 [place] [address] Rheumatoid arthritis of other site, unspecified whether rheumatoid factor present (HCC) Discharge Disposition: Discharge to home or self care 11/29/2024 Orders Only [facility] [address] [facility] 5th [place] [address] [place] [address] Laura Hirsch MD Rheumatoid arthritis of other site, unspecified whether rheumatoid factor present (HCC) (Primary Dx) 11/26/2024 Results Follow-Up [facility] 1 [facility] [address] [place] [address] Laura Hirsch MD 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, SHANNAN ab ql w/rflx to SHANNAN qn, CLYDE ab eval w/reflex, Additional followed-up results: 12 11/20/2024 1:08 PM CDT - 11/20/2024 11:59 PM CDT Hospital Encounter [facility] Imaging Center 1 [place] [address] Rheumatoid arthritis of other site, unspecified whether rheumatoid factor present (HCC) Discharge Disposition: Discharge to home or self care 11/19/2024 3:11 PM CDT - 11/19/2024 11:59 PM CDT Hospital Encounter [address] [address] Rheumatoid arthritis of other site, unspecified whether rheumatoid factor present (HCC); High risk medication use Discharge Disposition: Discharge to home or self care 11/19/2024 3:10 PM CDT Lab [facility] Medicine Infectious Diseases 1 [facility] [address] [place] [address] 11/19/2024 2:00 PM CDT Office Visit [facility] Rheumat[facility] 1 [facility] [address] [place] [address] Laura Hirsch MD Rheumatoid arthritis of other site, unspecified whether rheumatoid factor present (HCC) (Primary Dx); Anterior scleritis of both eyes; High risk medication use; 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 fatigue; 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00 - 0.10 K/cumm [facility] Neutrophil pct 71.3 % [facility] Comment: Interpretive Data Percent cell count reference ranges are not reported, since discordance with absolute values may lead to misinterpretation of CBC data. Current Interpretive Data was last revised on 2017. Imm gran pct 0.2 % [facility] Comment: Interpretive Data Percent cell count reference ranges are not reported, since discordance with absolute values may lead to misinterpretation of CBC data. Current Interpretive Data was last revised on 2017. Lymphocyte pct 19.3 % [facility] Comment: Interpretive Data Percent cell count reference ranges are not reported, since discordance with absolute values may lead to misinterpretation of CBC data. Current Interpretive Data was last revised on 2017. Monocyte pct 7.6 % [facility] Comment: Interpretive Data Percent cell count reference ranges are not reported, since discordance with absolute values may lead to misinterpretation of CBC data. Current Interpretive Data was last revised on 2017. Eosinophil pct 1.0 % [facility] Comment: Interpretive Data Percent cell count reference ranges are not reported, since discordance with absolute values may lead to misinterpretation of CBC data. Current Interpretive Data was last revised on 2017. Basophil pct 0.6 % [facility] Comment: Interpretive Data Percent cell count reference ranges are not reported, since discordance with absolute values may lead to misinterpretation of CBC data. Current Interpretive Data was last revised on 2017. Blood 01/28/2025 2:58 PM CDT 01/28/2025 7:50 PM CDT Swetha Wells MD LAB BLOOD ORDERABLES Rita quinteros Result [facility] [address] Department [place] [address] * (ABNORMAL) CBC with auto differential (01/28/2025 2:58 PM CDT) WBC 5.24 3.80 - 9.90 K/cumm Hgb 12.1 11.9 - 15.5 g/dL [facility] Hct 39.5 35.6 - 45.5 % [facility] Plt 311 150 - 400 K/cumm [facility] MPV 11.9 9.1 - 12.3 fL [facility] RBC 3.51(L) 3.90 - 5.20 M/cumm [facility] MCV 112.5(H) 81.3 - 96.4 fL [facility] MCH 34.5(H) 27.1 - 33.3 pg [facility] MCHC 30.6(L) 32.3 - 35.7 g/dL [facility] RDW CV 15.0(H) 11.1 - 14.9 % [facility] RDW SD 61.9(H) 35.7 - 48.1 fL [facility] NRBC abs 0.00 0.00 - 0.01 K/cumm [facility] Blood 01/28/2025 2:58 PM CDT 01/28/2025 7:50 PM CDT Swetha Wells MD LAB BLOOD ORDERABLES Rita l Result [facility] [address] [place] [address] * CRP (acute phase) (01/28/2025 2:58 PM CDT) CRP <3.0 <=10.0 mg/L Blood 01/28/2025 2:58 PM CDT 01/28/2025 7:50 PM CDT Swetha Wells MD LAB BLOOD ORDERABLES Rita l Result Performing Organization Address [facility] Co de Phone Number IV[facility] [place] [address] [place] [address] * Comprehensive metabolic panel (01/28/2025 2:58 PM CDT) Sodium 143 135 - 145 mmol/L Potassium, pl 4.4 3.3 - 4.9 mmol/L [facility] Chloride 106 97 - 110 mmol/L [facility] CO2 25 22 - 32 mmol/L [facility] Anion gap 12 2 - 15 mmol/L [facility] BUN 20 6 - 25 mg/dL [facility] Creatinine 1.05 0.60 - 1.10 mg/dL [facility] Glucose 105 70 - 199 mg/dL [facility] Comment: Interpretive Data Fasting glucose >/= 126 [...] LAB BLOOD ORDERABLES Rita l Result [facility] [address] Department [place] [address] * MRI Pelvis SI Joints WO Contrast [...] Phan M.D. MF: JOSE ENRIQUE Report ID: [id number] Reading Location: [id number] Procedure Note Carlos Phan MD - 12/07/2024 [...] Phan M.D. MF: JOSE ENRIQUE Report ID: [id number] Reading Location: [id number] us Laura Hirsch MD IMG XR PROCEDURES [...] Phan M.D. MF: JOSE ENRIQUE Report ID: [id number] Reading Location: [id number] Procedure Note Carlos Phan MD - 11/21/2024 [...] Phan M.D. MF: JOSE ENRIQUE Report ID: [id number] Reading Location: [id number] us Laura Hirsch MD IMG XR PROCEDURES [...] Phan M.D. MF: JOSE ENRIQUE Report ID: [id number] Reading Location: [id number] Procedure Note Carlos Phan MD - 11/21/2024 [...] 11/21/2024 4:13 PM - Electronically signed by Cralos Phan M.D. MF: JOSE ENRIQUE Report ID: [id number] Reading Location: [place] [address] us Laura Hirsch MD IMG XR PROCEDURES [...] Phan M.D. MF: JOSE ENRIQUE Report ID: [id number] Reading Location: [id number] Procedure Note Carlos hPan MD - 11/21/2024 EXAM DESCRIPTION: XR HIPS [...] Phan M.D. MF: JOSE ENRIQUE Report ID: [id number] Reading Location: [place] [address] us Laura Hirsch MD IMG XR PROCEDURES [...] Phan M.D. MF: JOSE ENRIQUE Report ID: [id number] Reading Location: [id number] Procedure Note Carlos Phan MD - 11/21/2024 [...] Phan M.D. MF: JOSE ENRIQUE Report ID: [id number] Reading Location: [place] [address] us Laura Hirsch MD IMG XR PROCEDURES [...] Phan M.D. MF: JOSE ENRIQUE Report ID: [id number] Reading Location: [id number] Procedure Note Carlos Phan MD - 11/21/2024 [...] Phan M.D. MF: JOSE ENRIQUE Report ID: [id number] Reading Location: [place] [address] Laura Hirsch MD IMG XR PROCEDURES Fin [...] approved IVD kit and validated by the [facility] HLA laboratory. Interpretive comments: HLA-B*27 positivity confers [...] J Med 2016;374:2563-74) Testing performed at the [facility], [address], 5th floor, [place], [address]. [facility] # [id number]. Liset Hodges, Ph.D., Marketing Recruiter, HLA Laboratory Devan Roman M.D., Ph.D., Book Editor, [facility] Laboratory Dottie Carrillo, Ph.D., CHRISTALIA Book Editor, [facility] Clinical Laboratories Current methodology and interpretive comments [...] last revised on 2020. Testing performed by: [facility], [address] [place] [address]., [address] SHANNAN, quant 1:80 titer IVETH Comment:Testing performed by : [facility], [address] [place] [address]., [address] SHANNAN, interp Homogeneous (A) IVETH CH Comment:Testing performed by : [address] [address] Blood 11/19/2024 3:11 PM CDT 11/20/2024 10:02 AM CDT us Laura Hirsch MD LAB BLOOD ORDERABLES Final Result Performing Organization Address City/[facility]/[place] Number [place] [address] [address] [place] [address] * Collection Task for HLA Typing 1 (11/19/2024 3:11 PM CDT) [facility] HLA Class I DNA (ABC) Recipient Received Comment:Testing performed by : [facility], [address] [place]., [address] Blood 11/19/2024 3:11 PM CDT 11/20/2024 10:56 AM CDT us Laura Hirsch MD LAB BLOOD ORDERABLES Final Result Performing Organization Address [facility] Co de Phone Number IV[facility] [place] [address] [address] [place] [address] * eGFR (11/19/2024 3:11 PM CDT) [facility] eGFR 64 >=60 mL/min/1. 73 m2 Comment: [...] Hirsch MD LAB BLOOD ORDERABLES Final Result [facility] [address] Department [place] [address] * (ABNORMAL) Differential, auto (11/19/2024 3:11 PM CDT) Neutrophil abs 3.71 1.50 - 6.50 K/cumm Imm gran abs 0.11(H) 0.00 - 0.10 K/cumm [facility] Lymphocyte abs 2.43 0.80 - 3.30 K/cumm [facility] Monocyte abs 0.79 0.20 - 0.80 K/cumm [facility] Eosinophil abs 0.19 0.00 - 0.50 K/cumm [facility] Basophil abs 0.04 0.00 - 0.10 K/cumm [facility] Neutrophil pct 51.0 % [facility] Comment: Interpretive Data Percent cell count reference ranges are not reported, since discordance with absolute values may lead to misinterpretation of CBC data. Current Interpretive Data was last revised on 2017. Imm gran pct 1.5 % [facility] Comment: Interpretive Data Percent cell count reference ranges are not reported, since discordance with absolute values may lead to misinterpretation of CBC data. Current Interpretive Data was last revised on 2017. Lymphocyte pct 33.4 % [facility] Comment: Interpretive Data Percent cell count reference ranges are not reported, since discordance with absolute values may lead to misinterpretation of CBC data. Current Interpretive Data was last revised on 2017. Monocyte pct 10.9 % [facility] Comment: Interpretive Data Percent cell count reference ranges are not reported, since discordance with absolute values may lead to misinterpretation of CBC data. Current Interpretive Data was last revised on 2017. Eosinophil pct 2.6 % [facility] Comment: Interpretive Data Percent cell count reference ranges are not reported, since discordance with absolute values may lead to misinterpretation of CBC data. Current Interpretive Data was last revised on 2017. Basophil pct 0.6 % [facility] Comment: Interpretive Data Percent cell count reference ranges are not reported, since discordance with absolute values may lead to misinterpretation of CBC data. Current Interpretive Data was last revised on 2017. Blood 11/19/2024 3:11 PM CDT 11/19/2024 6:50 PM CDT Laura Hirsch MD LAB BLOOD ORDERABLES Final Result [facility] [address] [place] [address] * C4 complement (11/19/2024 3:11 PM CDT) Complement C4 22 10 - 40 mg/dL Blood 11/19/2024 3:11 PM CDT 11/19/2024 7:00 PM CDT Laura Hirsch MD LAB BLOOD ORDERABLES Final Result Performing Organization Address [facility] Co de Phone Number SYLWIAROSALINDA [facility] [address] [place] [address] * CLYDE ab eval w/reflex (11/19/2024 3:11 PM CDT) CLYDE ab Negative Negative Comment: Interpretive Data Positive Screens will be reflexed to specific testing for Antibodies against the following antigens: Mariam-1 Ab, VICE PRESIDENT DIGITAL STRATEGIST Ab, Scl-70 Ab, Kathleen Ab, SS-A/Ro Ab, and SS- B/La Ab. Further testing for dsDNA, Centromere, or Ribosomal P antibodies is suggested in patient with a positive screen and negative specific antibodies. Current interpretive data was last revised on 2022. Testing performed by: [facility], [address] [facility], [place]., [address] Blood 11/19/2024 3:11 PM CDT 11/20/2024 10:01 AM CDT Laura Hirsch MD LAB BLOOD ORDERABLES Final Result Performing Organization Address City/[facility] Co de Phone Number SYLWIAROSALINDA ROSENT[facility] [address] Department [place] [address] * TB test, quantiferon gold (11/19/2024 3:11 PM CDT) [facility] Quantiferon TB Gold Negative Negative [place] [facility] Comment: No interferon-gamma response to [...] IUnits/mL CERNER CH Comment: Test Performed by: [place] [address] Lead Section Supervisor: Linda Maria Ph.D.; CLIA# [id number] Blood 11/19/2024 3:11 PM CDT 11/19/2024 7:00 PM CDT Laura Hirsch MD LAB BLOOD ORDERABLES Final Result [facility] [address] Department [place] [address] [place] [facility] * (ABNORMAL) CBC with auto differential (11/19/2024 3:11 PM CDT) [facility] WBC 7.27 3.80 - 9.90 K/cumm Hgb 11.4(L) 11.9 - 15.5 g/dL [facility] Hct 36.5 35.6 - 45.5 % [facility] Plt 313 150 - 400 K/cumm [facility] MPV 11.6 9.1 - 12.3 fL [facility] RBC 3.21(L) 3.90 - 5.20 M/cumm [facility] MCV 113.7(H) 81.3 - 96.4 fL [facility] MCH 35.5(H) 27.1 - 33.3 pg [facility] MCHC 31.2(L) 32.3 - 35.7 g/dL [facility] RDW CV 15.9(H) 11.1 - 14.9 % [facility] RDW SD 66.0(H) 35.7 - 48.1 fL [facility] NRBC abs 0.00 0.00 - 0.01 K/cumm [facility] Blood 11/19/2024 3:11 PM CDT 11/19/2024 6:50 PM CDT Laura Hirsch MD LAB BLOOD ORDERABLES Final Result [facility] [address] Department [place] [address] * HLA-B27 antigen (11/19/2024 3:11 PM CDT) HLA-B27 ag Positive Not Applicable [facility] Lab HLA-B27 interp See Footnote IVETH [...] etc. ADDITIONAL INFORMATION Method: Flow Cytometry CLIA: [id number] CLIA Lead Section Supervisor: LINDA MARIA,Ph.D. Test Performed by: [address] [address] Lead Section Supervisor: Linda Maria Ph.D.; CLIA# [id number] Blood 11/19/2024 3:11 PM CDT 11/20/2024 8:47 AM CDT Laura Hirsch MD LAB BLOOD ORDERABLES Final Result [facility] [place] [address] [place] [address] [place] [facility] * Cyclic citrul peptide antibody, IgG (11/19/2024 3:11 PM CDT) Pathologist [facility] CCP Ab <0.5 <=2.9 units/mL Comment: Interpretive data Negative: <3 units/mL Positive: > or equal to 3 units/mL Current interpretive data was last revised on 2016. Testing performed by: [facility], [address] [place] [address]., [address] Blood 11/19/2024 3:11 PM CDT 11/20/2024 10:02 AM CDT us Laura Hirsch MD LAB BLOOD ORDERABLES Final Result Performing Organization Address [facility]/ZIP Co de Phone Number IVETH GALO [address] [address] [place] [address] * Erythrocyte sedimentation rate (11/19/2024 3:11 PM CDT) Pathologist [facility] Erythrocyte sedimentation rate 10 1 - 30 mm/hr Comment:Testing performed by : [facility], [facility], [place], [address] Blood 11/19/2024 3:11 PM CDT 11/19/2024 6:50 PM CDT Laura Hirsch MD LAB BLOOD ORDERABLES Final Result SYLWIAROSALINDA [facility] [address] [place] [address] * Rheumatoid factor (11/19/2024 3:11 PM CDT) Pathologist [facility] Rheumatoid factor, quant 11 <=15 IUnits/mL Blood 11/19/2024 3:11 PM CDT 11/19/2024 7:00 PM CDT Laura Hirsch MD LAB BLOOD ORDERABLES Final Result [facility] [address] [facility] [place] [address] * C3 complement (11/19/2024 3:11 PM CDT) [facility] Complement C3 100 90 - 180 mg/dL Blood 11/19/2024 3:11 PM CDT 11/19/2024 7:00 PM CDT Laura Hirsch MD LAB BLOOD ORDERABLES Final Result Performing Organization Address [facility] Co de Phone Number IVETH [address] [address] [facility] [place] [address] * CRP (acute phase) (11/19/2024 3:11 PM CDT) [facility] CRP <3.0 <=10.0 mg/L Blood 11/19/2024 3:11 PM CDT 11/19/2024 7:00 PM CDT Laura Hirsch MD LAB BLOOD ORDERABLES Final Result Performing Organization Address [facility] Co de Phone Number [facility] [address] [address] [facility] [place] [address] * Comprehensive metabolic panel (11/19/2024 3:11 PM CDT) [facility] Sodium 138 135 - 145 mmol/L Potassium, [...] Hirsch MD LAB BLOOD ORDERABLES Final Result [facility] [address] Department [place] [address] * Screening Mammogram 2D Bilateral (01/29/2013 12:00 AM CDT) Anatomical Region Laterality Modality Breast Bilateral Mammography 01/29/2013 3:30 PM CDT Narrative 01/30/2013 3:39 PM CDT Patient Name: LORAINE GOMES S.S.N.: [id number] Visit ID Number: [id number] Patient Type: O Date of : 1965 Doctor Name: FLORINA RANDHAWA MD Patient Location: RAD EXAM DATE: 01/29/2013 TIME: 15:21 HISTORY: SCREENING PRIMARY EXAM #: [id number] EXAM(S) PERFORMED: SCREENING MAMM BI CPT Code(s): 43775 Family history of breast cancer in grandmother at age 40. Taking hormonal contraceptives beginning at age 18. Last mammogram was performed 1 year and 2 months ago. NO CONCERNS SCREENING MAMM BI: January 29, 2013 - Exam #: [id number] Bilateral CC and MLO view(s) were taken. Technologist: KAY KEMP Prior study comparison: December 20, 2011, right breast diag mamm R, performed at [facility]. December 12, 2011, bilateral SCREENING MAMM BI. November 16, 2010, bilateral screening mammogram. November 03, 2010, breast ultrasound. The breast tissue is heterogeneously dense. This may lower the sensitivity of mammography. The right anterior breast partially obscured ovoid 2.8 cm cyst has enlarged compared to the 2012 exam by 1 cm. It was previously confirmed as a cyst at [facility] in 2012. 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 Takinghormonal contraceptives beginning at age 18. Last mammogram was performed 1 yearand 2 months ago. NO CONCERNS SCREENING MAMM BI: January 29, 2013 - Exam #: [id number] Bilateral CC andMLO view(s) were taken. Technologist: KAY KEMP Prior study comparison: 2011, right breast diag mamm R, performed at [facility]. November, bilateral SCREENING MAMM BI. November 16, 2010, bilateral screening mammogram.November 03, 2010, breast ultrasound. The breast tissue is heterogeneously dense.This may lower the sensitivity of mammography. The right anterior breastpartially obscured ovoid 2.8 cm cyst has enlarged compared to the 2012 exam by 1 cm.It was previously confirmed as a cyst at [facility] in 2011. 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
--- OUTSIDE RECORDS SUMMARY | 2025-02-18 15:13 | XMS_ITS | Clinical Summary ---
Author Organization [facility] [employer] Address [address] [facility] [place] [address] Care Team Providers Care Bibliographic Services Specialist Name Role Phone Carri De La O MD Unavailable Unavailable Shane Crespo MD Primary Care Provider [phone] Source Comments [facility],non-owned Affiliates and Associated Physician Practices is amultiple site organization consisting of ambulatory clinics and hospital sitesin [place], [place], [place]. This disclosure is being madepursuant to the Care Everywhere program and may not contain all information available regarding this patient. Last updated 18.[facility] Allergies Active Allergy Reactions Criticality Noted Date Comments Aspirin 09/08/2012 Azathioprine Urticaria 01/19/2016 Bee Venom Swelling Medium 11/25/2019 Heart swelled Heart swelled Heart swelled Esrfvziqxq-Sqdmjfm-Sthqzgk e Urticaria High 11/25/2019 Codeine 09/08/2012 Contrast-Iodinated Agents For Ct/Other Other 10/15/2015 Pain in arm Iodine Urticaria,Shortness of Breath High 11/25/2019 Latex Itching,Swelling 02/09/2023 Leflunomide Fever,Headache,Hepa tic Injury,Other High 04/09/2018 Morphine Itching 09/08/2012 Prochlorperazine Other 05/23/2017 Shellfish Urticaria High 11/25/2019 [place] Urticaria High 11/25/2019 Medications * Be aware [...] 7 days Active Zavegepant HCl (ZAVZPRET NA) [place] 10 mg into the nose as needed [...] on file 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 Gender Identity Not on file Sexual Orientation [...] COMPREHENSIVE METABOLIC PANEL (03/07/2023 11:45 AM CDT) [facility] Glucose 87 70 - 105 mg/dL 03/07/2023 [...] - 10.4 mg/dL 03/07/2023 12:03 PM CDT [facility] Anion Gap 10 6 - 16 mmol/L 03/07/2023 12:03 PM CDT [facility] BUN 13 7 - 26 mg/dL 03/07/2023 12:03 PM CDT [facility] Creatinine 0.95 0.57 - 1.11 mg/dL 03/07/2023 12:03 PM CDT [facility] Alkaline Phosphatase 47 40 - 150 U/L 03/07/2023 12:03 PM CDT [facility] ALT 29 0 - 55 U/L 03/07/2023 12:03 PM CDT [facility] AST 30 5 - 34 U/L 03/07/2023 12:03 PM CDT [facility] Protein Total 7.5 6.4 - 8.3 gm/dL 03/07/2023 12:03 PM CDT [facility] Albumin 4.1 3.4 - 5.0 gm/dL 03/07/2023 12:03 PM CDT [facility] Bilirubin Total 0.6 0.2 - 1.2 mg/dL 03/07/2023 12:03 PM CDT [facility] eGFR by CKD-EPI 70(L) >=90 mL/min/1.7 3 m2 03/07/2023 12:03 PM CDT [facility] Blood BLOOD SPECIMEN / Unknown Venipuncture / Unknown 03/07/2023 11:45 AM CDT 03/07/2023 11:47 AM CDT Velma Mccray PA-C LAB - CHEMISTRY ORDERABL ES Final Result [facility] [address] [place] [address] from Last 3 Months or Most Recently Relevant to Health Maintenance Insurance [facility] Address: [id number] [place] [address] Care Teams Bibliographic Services Specialist Relationship Specialty [place] [address] [facility] [address] [place] [id number] PCP - General Internal Medicine 02/09/23 Carri De La O MD Internal Medicine 02/10/20
--- OUTSIDE RECORDS SUMMARY | 2025-02-18 15:13 | XMS_ITS | Encounter Summary ---
Author Organization [facility] Address [address] [place] [address] Phone Care Team Providers Care Medical Collections Representative Name Role Phone Ruy Cox MD Unavailable [phone] Shane Crespo MD Primary Care Provider [phone] Encounter Details Date Type Department Care Team (Latest Contact Info) Description 01/29/2025 Results Follow-Up [facility] Medicine Rheumatology [address] [facility] [address] [place] [address] Swetha Wells MD [address] [place] [address] CRP (acute phase), Comprehensive metabolic [...] on file 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
--- OUTSIDE RECORDS SUMMARY | 2025-02-18 15:13 | XMS_ITS | Clinical Summary ---
Author Organization [facility] Address [address] [place] [address] Phone Care Team Providers Care Audiovisual Tech Name Role Phone Shane Crespo MD Primary Care Provider [phone] Allergies Active Allergy Reactions Criticality Noted Date Comments Aspirin Hives High 09/23/2013 Azathioprine Hives High 01/18/2016 Bqabfdaxuv-Vdrlrrh-Fffqey ne Hives High 11/25/2019 Codeine Hives High [...] mouth. Active fluticasone propionate (FLONASE) 50 mcg/spray [place], Suspension nasal inhalerIndicat ions:Pain in ear, bilateral [...] O [place]erring [place]: [place] [address] [address] Other: Dr. Nimco Berry MD Problem Noted [...] STL ABSTRACTION Provider, Abstract 02/11/2025 Results [facility] [address] [place] [address] Ruy Cox MD MAMMO 3D AUTOMATED BREAST US BILAT 02/10/2025 8:30 AM CDT - 02/10/2025 11:59 PM CDT Hospital Encounter [facility] Medical [place] [address] [place] [address] Ruy Cox MD Discharge Disposition: Home or Self Care 02/04/2025 External Device Data STL ABSTRACTION Provider, Abstract 01/22/2025 Orders Only [facility]OS[employer]FT ARCHITECT - Medical [place] [address] [facility] [address] [place] [address] Austin Saeed MD 01/21/2025 Telephone [facility] Clinical Support [address] [address] Sylvester Aiken, blood bank technician Assistance 01/16/2025 1:15 PM CDT Office Visit [facility]CROSOFT ARCHITECT - Medical [place] [address] [facility] [address] [place] [address] Austin Saeed MD Dyspareunia in female (Primary Dx) 01/16/2025 Abstract [facility] Neurology [facility] 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 Gender Identity Not on file Sexual Orientation Not on file Occupation Industry Job Start Date Job End Date Not on file Not on file Not on file Not on file Last Filed Vital Signs Vital Sign Reading Time Taken Comments Blood Pressure 120/74 01/16/2025 1:07 PM CDT Pulse 91 10/01/2024 11:38 AM CDT Temperature 36.1 C (97 F) 05/27/2024 11:30 AM CONTROLS OPERATOR MOLDED GOODS Respiratory Rate 20 05/26/2024 1:08 PM CONTROLS OPERATOR MOLDED GOODS Oxygen Saturation 94% 10/01/2024 11:38 AM CDT Inhaled Oxygen Concentration - - Weight 68 kg (150 lb) 01/16/2025 1:07 PM CDT Height 154.9 cm (5' 1) 01/16/2025 1:07 PM CDT Body Mass Index 28.34 01/16/2025 1:07 PM CDT Plan of Treatment Upcoming Encounters Date Type Department Care Team (Late st Contact Info) Description 03/20/2025 11:00 AM CDT Office Visit [facility] Internal Medicine [place]y Rene [address] [facility] [address] [place] [phone] [place] [address] [facility] [address] [place] [address] 04/02/2025 11:30 AM CDT Office Visit [facility] Neurology [facility] [address] [facility] [address] [place] [address] [place] [address] [facility] [address] [place] [address] Health Maintenance Due Date Last [...] PAP RLFX HPV Routine 05/21/2024 1:22 PM CONTROLS OPERATOR MOLDED GOODS Encounter for gynecological examination with abnormal finding [...] ASSESSMENT: BI-RADS CATEGORY 1: Negative. DICTATION LOCATION: [facility] Narrative 02/10/2025 10:23 AM CDT AUTOMATED WHOLE [...] SCREEN PAP RLFX HPV (05/21/2024 1:22 PM CONTROLS OPERATOR MOLDED GOODS) CLINICAL INFORMATION Julisa Phelps Comment:RTN LAST MENSTRUAL PERIOD Julisa Phelps Comment:NONE GIVEN PREV PAP: Julisa Phelps Comment:NONE GIVEN PREV BX: Julisa Phelps Comment:NONE GIVEN SOURCE Julisa Phelps Comment:Endocervix ADEQUACY: Juilsa Phelps Comment: Satisfactory for evaluation. Endocervical/transformation zone component absent. Age and/or menstrual status not provided PAP INTERP Julisa Phelps Comment: Cytology Results: Negative for intraepithelial lesion or malignancy. COMMENT (PAP TEST) Q uest Connie Phelps Comment: This Pap test has been evaluated with computer assisted technology. SOLAR INSTALLATION SUPERVISOR: Paresh Phelps Comment: YQ, CT(ASCP) CT screening location: [place] [address] [place] [address] EXPLANATORY NOTE Que [facility] janet Lenin Comment: EXPLANATORY NOTE: The [...] and current clinical information. Test Performed at: [place] [address] [address] [place] [address] PaytonCarrington Gonzalez Vo Genital SWAB OF ENDOCERVIX / Unknown 05/21/2024 1:22 PM CONTROLS OPERATOR MOLDED GOODS 05/22/2024 6:09 AM CONTROLS OPERATOR MOLDED GOODS us Ruy Cox MD PATHOLOGY/CYTOLOGY ORDERABLE S Final Result [facility] [phone] [place] [address] [address] [place] [address] * MAMMO DIAG BILAT 3D YUMI W OR WO CAD (04/08/2024 10:21 AM CDT) Anatomical Region Laterality Modality Breast Bilateral Mammography 04/08/2024 10:2 1 AM CDT Impressions 04/08/2024 10:42 AM CDT IMPRESSION: No mammographic evidence of malignancy. RECOMMENDATIONS: Routine mammogram in one year. DICTATION LOCATION: [facility] Narrative 04/08/2024 10:42 AM CDT EXAM: BILATERAL [...] Routine mammogram in one year. DICTATION LOCATION: [facility] Ruy Cox MD MAMMO ORDERABLES Final Resul t * COLONOSCOPY REPORT (03/11/2022 10:53 AM CDT) Narrative Procedure Note Chey Jenkins MD - 03/11/2022 10:52 AM CDT [facility] Patient Name: Loraine Patrick Procedure Date: [...] - If you are active on [employer], you will receive the biopsy results as a message via that account. If you do not have [employer] account, you will receive a call from my office regarding your results. If you do not hear from us about your results within a week, please contact our office at [phone] . Chey Jenkins MD 03/11/2022 10:52:34 AM This report has been signed electronically. Number of Addenda: [id number] [address] [place] Chey Jenkins MD GI PROCEDURE ORDERABLES Final Result * POC OCCULT BLOOD, IMMUNO, QUAL, STOOL (11/25/2019 11:20 AM CDT) OCCULT BLOOD, IMMUNOASSAY POC Negative Negative [facility] MICROSOFT ARCHITECT TOWER A [address] INTERNAL KIT QC Pass Pass [facility] [employer] ARCHITECT TOWER A [address] POC [id number] [facility] MICROSOFT ARCHITECT TOWER A [address] KIT EXPIRATION DATE POC [id number] [facility] [employer] ARCHITECT TOWER A [address] Stool STOOL SPECIMEN / Unknown 11/25/2019 11:20 AM CDT Ruy Cox MD POINT OF CARE TESTING Final Result [facility] [employer] ARCHITECT TOWER A [address] CLIA# [id number] [address] [facility] [address] [place] [address] from Last 3 Months or Most Recently [...] Advance Directives For more information, please contact: [phone] * Full Code (Latest Code Status on File) Date Activated Date Inactivated Comments 03/26/2024 6:54 AM 03/26/2024 10:32 AM * Full Code Date Activated Date Inactivated Comments 03/11/2022 9:45 AM 03/11/2022 1:23 PM * Full Code Date Activated Date Inactivated Comments 08/24/2018 1:49 PM 08/24/2018 5:59 PM Care Teams Audiovisual Tech Relationship Specialty [place] [address] [facility] [address] [place] [address] PCP - General Internal Medicine 05/11/21
--- OUTSIDE RECORDS SUMMARY | 2025-02-18 15:13 | XMS_ITS | Encounter Summary ---
Author Organization [facility] Address [address] [place] [address] Care Team Providers Care Ux Architect Name Role Phone Shane Crespo MD Primary Care Provider [phone] Encounter Details Date Type Department Care Team (Late Contact Info) Description 02/11/2025 Results Follow-Up [address] [address] Ruy Cox MD 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 Gender Identity Not on file Sexual Orientation Not on file Occupation Industry Job Start Date Job End Date Not on file Not on file Not on file Not on file documented as of this encounter Plan of Treatment Upcoming Encounters Date Type Department Care Team (Late Contact Info) Description 03/20/2025 11:00 AM CDT Office Visit [facility] Internal Medicine [address]atsy L[address] [facility] [address] [place] [address] [place] [address] [facility] [address] [place] [address] 04/02/2025 11:30 AM CDT Office Visit [facility] Neurology [facility] [address] [facility] [address] [place] [address] [place] [address] [facility] [address] [place] [address] documented as of this encounter Visit Diagnoses Not on filedocumented in this encounter Care Teams Ux Architect Relationship Specialty Start [place] [address] [facility] [address] [place] [phone] PCP - General Internal Medicine 05/11/21 documented as of this encounter
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
[2025-02-18 15:49] VITALS: BP 122/62; PULSE 85; RESP 16; TEMP 36.8; O2SAT 98
== END 2025-02-18 15:51 | disposition home or self-care (01) ==
PROVIDERS: Emergency Provider Family Medicine
DX: S09.90XA Unspecified injury of head, initial encounter (principal); S20.219A Contusion of unspecified front wall of thorax, initial encounter; V19.9XXA Pedal cyclist (driver) (passenger) injured in unspecified traffic accident, initial encounter
CPT/HCPCS: 70450; 71046; 71250; 72125; 73030; 99284; A9270